=== PATIENT | female | born 1960 | race Caucasian/White ===

== ENCOUNTER 2017-05-03 08:03 | Observation (INO) | payer BC ==
[2017-05-03] MEDS ORDERED: diphenhydrAMINE 50 MG/ML SDV IVPUSH ONE (08:24)
[2017-05-03] MEDS ORDERED: Sodium Chloride 0.9% 1,000 ML IV STA (08:24)
[2017-05-03] MEDS ORDERED: Ketorolac 30 MG/ML SDV IVPUSH ONE (08:24)
[2017-05-03] MEDS ORDERED: methylPREDNISolone Sodium Succinate 125 MG/2 ML SDV IVPUSH ONE (08:24)
--- NOTE | 2017-05-03 08:44 | EDM.PDOC ---
ED HPI GENERAL MEDICAL PROBLEM - General Chief Complaint: Bite:Animal, Insect Stated Complaint: BITE Time Seen by Provider: 05/03/17 08:24 - History of Present Illness INITIAL COMMENTS - FREE TEXT/NARRATIVE: HISTORY AND PHYSICAL: History of present illness: Patient 56-year-old white female presents with a concern of pain swelling and erythema to her thigh patient suspects she was bit by some sort of insect and now has increasing redness pain swelling erythema. She denies fever chills nausea or vomiting. Review of systems: As per history of present illness and below otherwise all systems reviewed and negative. Past medical history: As per history of present illness and as reviewed below otherwise noncontributory. Surgical history: As per history of present illness and as reviewed below otherwise noncontributory. Social history: No reported history of drug or alcohol abuse. Family history: As per history of present illness and as reviewed below otherwise noncontributory. Physical exam: HEENT: Atraumatic, normocephalic, pupils reactive, negative for conjunctival pallor or scleral icterus, mucous membranes moist, throat clear, neck supple, nontender, trachea midline. Lungs: Clear to auscultation, breath sounds equal bilaterally, chest nontender. Heart: S1S2, regular, negative for clicks, rubs, or JVD. Abdomen: Soft, nondistended, nontender. Negative for masses or hepatosplenomegaly. Negative for costovertebral tenderness. Pelvis: Stable nontender. Genitourinary: Deferred. Rectal: Deferred. Extremities: Patient has a large area of her medial thigh extending anterior posteriorly and almost distally to her knee this is warm to the touch tender with minimal induration is no fluctuance Neuro: Awake, alert, oriented. Cranial nerves II through XII unremarkable. Cerebellum unremarkable. Motor and sensory unremarkable throughout. Exam nonfocal. Diagnostics: CBC CMP blood culture 2 lactic acid chest x-ray x-ray thought left femur Therapeutics: Normal saline 1 L bolus vancomycin 1 g IV Benadryl 50 mg IV Solu-Medrol 125 mg IV Impression: #1 cellulitis left thigh #2 rule out insect bite with acute allergic reaction Definitive disposition and diagnosis as appropriate pending reevaluation and review of above. Left thigh Pain Score (Numeric/FACES): 10 - Related Data Allergies Allergy/AdvReac Type Severity Reaction Status Date / Time No Known Allergies Allergy Verified 05/03/17 08:22 Home Meds: Home Meds Fluticasone Propionate [Flonase] 1 - 2 sprays INH DAILY PRN 07/30/15 [History] Omeprazole Magnesium [Prilosec Otc] 1 tab PO DAILY 07/30/15 [History] Albuterol [Ventolin HFA] 2 puff INH Q4H PRN 04/25/17 [History] Fluticasone/Vilanterol [Breo Ellipta 100-25 MCG Inhalation Kit] 1 inhalation INH DAILY PRN 04/25/17 [History] Levothyroxine Sodium [Levoxyl] 50 mcg PO DAILY 04/25/17 [History] Metoclopramide HCl 1 tab PO DAILY 04/25/17 [History] Pantoprazole Sodium 40 mg PO DAILY 04/25/17 [History] Sucralfate 1 gm PO QID 04/25/17 [History] cloNIDine HCl [Clonidine HCl ER] 0.1 mg PO BID 04/25/17 [History] metFORMIN HCl [Metformin HCl] 1 tab PO BID 04/25/17 [History] valACYclovir HCl [valACYclovir] 2 tab PO ASDIRECTED PRN 04/25/17 [History] Fluticasone Propionate [Flonase Allergy Relief] 1 spray NASBOTH DAILY 05/02/17 [ History] Past Medical History HEENT History: Reports: Allergic Rhinitis, Other (See Below) Other HEENT History: top and bottom denture Respiratory History: Reports: COPD Other Respiratory History: 43 yr history of smoking, currently down to 5 to 6 cigarettes per day, COPD dx 2016 Gastrointestinal History: Reports: Colon Polyp, GERD Other Gastrointestinal History: "terrible heartburn" Genitourinary History: Reports: None Other Musculoskeletal History: Low back pain, 'some arthritis to hands, hx: fracturing ribs, Neurological History: Reports: Other (See Below) Other Neuro History: "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" Endocrine/Metabolic History: Reports: Hyperthyroidism Other Endocrine/Metabolic History: pt takes levothyroxine - Past Surgical History Head Surgeries/Procedures: Reports: None HEENT Surgical History: Reports: Tonsillectomy GI Surgical History: Reports: Colonoscopy Female Surgical History: Reports: Cervical Cryotherapy, Hysterectomy Other Female Surgeries/Procedures: Partial hysterectomy, Conization of Cervix Other Oncologic Surgeries/Procedures: Cervical conization Social & Family History - Family History Family Medical History: Noncontributory - Tobacco Use Smoking Status *Q: Current Every Day Smoker Years of Tobacco use: 40 Packs/Tins Daily: 0.2 - Caffeine Use Caffeine Use: Reports: Coffee Caffeine Use Comment: 2-3 cups/day - Alcohol Use Days Per Week of Alcohol Use: 7 Number of Drinks Per Day: 3 Total Drinks Per Week: 21 - Recreational Drug Use Recreational Drug Use: Yes Drug Use in Last 12 Months: No Recreational Drug Type: Reports: Amphetamines (Speed) Recreational Drug Use Frequency: Daily ED ROS GENERAL - Review of Systems Review Of Systems: ROS reveals no pertinent complaints other than HPI. ED EXAM, ANIMAL BITE - Physical Exam Exam: See Below (See dictation) Course - Vital Signs Last Recorded V/S: Last Vital Signs Temp Pulse 89 05/03/17 09:00 Resp 16 05/03/17 09:00 BP 118/66 05/03/17 09:00 Pulse Ox 92 L 05/03/17 09:00 - Orders/Labs/Meds Orders: Active Orders 24 hr Category Date Time Status Patient Status [ADT] Stat ADT 05/03/17 08:27 Active Chest 1V Frontal [CR] Stat Exams 05/03/17 08:24 Ordered Femur Min 2V Lt [CR] Stat Exams 05/03/17 08:24 Ordered COMPREHENSIVE METABOLIC PN,CMP [CHEM] Stat Lab 05/03/17 08:23 Received CULTURE BLOOD [BC] Stat Lab 05/03/17 08:23 Received CULTURE BLOOD [BC] Stat Lab 05/03/17 08:49 Received Sodium Chloride 0.9% [Normal Saline] 1,000 ml Med 05/03/17 08:24 Active IV NOW Vancomycin [Vancocin] 1 gm Med 05/03/17 08:24 Active Sodium Chloride 0.9% [Normal Saline] 250 ml IV ONETIME Blood Culture x2 Reflex Set [OM.PC] Stat Oth 05/03/17 08:24 Ordered Medication Orders Sodium Chloride (Normal Saline) 1,000 mls @ 999 mls/hr IV NOW STA Stop: 05/03/17 09:24 Last Infusion: 05/03/17 08:58 Dose: 250 mls/hr Admin: 05/03/17 08:32 Dose: 999 mls/hr Vancomycin HCl 1 gm/ Sodium (Chloride) 250 mls @ 166 mls/hr IV ONETIME ONE Stop: 05/03/17 09:54 Last Admin: 05/03/17 08:58 Dose: 166 mls/hr Labs: Laboratory Tests 05/03/17 05/03/17 Range/Units 08:23 08:23 WBC 8.36 (4.0-11.0) K/uL RBC 4.53 (4.30-5.90) M/uL Hgb 14.3 (12.0-16.0) g/dL Hct 41.7 (36.0-46.0) % MCV 92.1 (80.0-98.0) fL MCH 31.6 (27.0-32.0) pg MCHC 34.3 (31.0-37.0) g/dL RDW Std Deviation 46.5 (28.0-62.0) fl RDW Coeff of Leonardo 14 (11.0-15.0) % Plt Count 259 (150-400) K/uL MPV 9.10 (7.40-12.00) fL Nucleated RBC % 0.0 /100WBC Nucleated RBCs # 0 K/uL Lactate 1.1 (0.20-2.00) mmol/L Meds: Medications Generic Name Dose Route Start Last Admin Trade Name Freq PRN Reason Stop Dose Admin Sodium Chloride 1,000 mls @ 999 mls/hr 05/03/17 08:24 05/03/17 08:58 Normal Saline IV 05/03/17 09:24 250 mls/hr NOW STA Infusion Vancomycin HCl 1 gm/ Sodium 250 mls @ 166 mls/hr 05/03/17 08:24 05/03/17 08: 58 Chloride IV 05/03/17 09:54 166 mls/hr ONETIME ONE Administration Discontinued Medications Generic Name Dose Route Start Last Admin Trade Name Freq PRN Reason Stop Dose Admin Diphenhydramine HCl 50 mg 05/03/17 08:24 05/03/17 08:48 Benadryl IVPUSH 05/03/17 08:25 50 mg ONETIME ONE Administration Hydromorphone HCl 1 mg 05/03/17 08:46 05/03/17 08:55 Dilaudid IVPUSH 05/03/17 08:47 1 mg ONETIME ONE Administration Ketorolac Tromethamine 30 mg 05/03/17 08:24 05/03/17 08:40 Toradol IVPUSH 05/03/17 08:25 30 mg ONETIME ONE Administration Methylprednisolone Sodium Succinate 125 mg 05/03/17 08:24 05/03/17 08:44 Solu-Medrol IVPUSH 05/03/17 08:25 125 mg ONETIME ONE Administration Ondansetron HCl 4 mg 05/03/17 08:46 05/03/17 08:52 Zofran IVPUSH 05/03/17 08:47 4 mg ONETIME ONE Administration Departure - Departure Time of Disposition: 08:43 Disposition: Refer to Observation Condition: Good Clinical Impression: Cellulitis - Discharge Information Referrals: PCP,None [Primary Care Provider] - Forms: ED Department Discharge - My Orders Last 24 Hours: My Active Orders 05/03/17 08:23 COMPREHENSIVE METABOLIC PN,CMP [CHEM] Stat CULTURE BLOOD [BC] Stat 05/03/17 08:24 Chest 1V Frontal [CR] Stat Femur Min 2V Lt [CR] Stat Sodium Chloride 0.9% [Normal Saline] 1,000 ml IV NOW Vancomycin [Vancocin] 1 gm Sodium Chloride 0.9% [Normal Saline] 250 ml IV ONETIME Blood Culture x2 Reflex Set [OM.PC] Stat 05/03/17 08:27 Patient Status [ADT] Stat 05/03/17 08:49 CULTURE BLOOD [BC] Stat - Assessment/Plan Last 24 Hours: My Active Orders 05/03/17 08:23 COMPREHENSIVE METABOLIC PN,CMP [CHEM] Stat CULTURE BLOOD [BC] Stat 05/03/17 08:24 Chest 1V Frontal [CR] Stat Femur Min 2V Lt [CR] Stat Sodium Chloride 0.9% [Normal Saline] 1,000 ml IV NOW Vancomycin [Vancocin] 1 gm Sodium Chloride 0.9% [Normal Saline] 250 ml IV ONETIME Blood Culture x2 Reflex Set [OM.PC] Stat 05/03/17 08:27 Patient Status [ADT] Stat 05/03/17 08:49 CULTURE BLOOD [BC] Stat
[2017-05-03] MEDS ORDERED: Ondansetron 4 MG/2 ML SDV IVPUSH ONE (08:46)
[2017-05-03] MEDS ORDERED: HYDROmorphone 1 MG/ML Syringe IVPUSH ONE (08:46)
[2017-05-03 09:42] LABS: CHLORIDE,CL 105 mmol/L (98-110); SODIUM,NA 137 mmol/L (136-146)
--- NOTE | 2017-05-03 09:56 | CR ---
EXAMINATION: Left femur HISTORY: Pain COMPARISON: None TECHNIQUE: AP and lateral views FINDINGS: There is no acute osseous abnormality, dislocation, or fracture. Bone mineralization is nor mal. There is mild generalized soft tissue edema no suprapatellar joint effusion. Mild osteophyte for mation within the femoral head. IMPRESSION: No acute osseous abnormality identified.
--- NOTE | 2017-05-03 09:56 | CR ---
EXAMINATION: Portable chest radiograph. HISTORY: Shortness of breath. Comparison: 08/16/2016, 03/08/2017. FINDINGS: The trachea is midline. The cardiomediastinal silhouette is within normal limits. Mild bibasilar atel ectasis/scarring and stable scarring within the left suprahilar region. No definite focal consolidati on. No pleural effusion or pneumothorax. Osseous structures appear unremarkable. IMPRESSION: No acute cardiopulmonary process.
[2017-05-03] MEDS ORDERED: Acetaminophen/HYDROcodone 325-5 MG Tab PO PRN (11:20)
[2017-05-03] MEDS ORDERED: Acetaminophen 325 MG Tab PO PRN (11:20)
[2017-05-03] MEDS ORDERED: Ondansetron 4 MG/2 ML SDV IVPUSH PRN (11:20)
--- NOTE | 2017-05-03 11:28 | PCM.HP ---
H&P History of Present Illness - General Date of Service: 05/03/17 Admit Problem/Dx: R lower extremity cellulitis Source of Information: Patient History Limitations: Reports: No Limitations - History of Present Illness Initial Comments - Free Text/Narative: This 56 year old female with pmh of COPD, HTN, pre-diabetes, hypothyroid, and alcohol abuse presented to the ED with 1 day history of pain, swelling and erythema to L upper thigh. She reports yesterday she was outside with her dog and felt a big sting to her inner thigh. She reports it felt like the sting she had to her L buttock 1 week ago from a wasp. She reports there is a wasp nest at the house she is living at and "they(wasps) are everywhere". Last night she soaked in a oatmeal bath with epsom salts but the pain, swelling and erythema worsened to the point she wanted to be evaluated. She is able to ambulate fine. She has some itchiness to the erythematous region. No drainage noted, no fever or chills at home. No chest pain or SOB. She no other complaints, no urinary symptoms and no abdominal pain. She reports drinking 3-4 drinks daily, she used to drink "heavily" and would withdrawl easily with seizures. She does smoke and denies recreational drug use, but does have a past of this. In the ED no leukocytosis noted. BC obtained. L Femur x ray obtained which revealed mild generalized soft tissue edema no suprapatetllar joint effusion. CXR negative. She was treated with Vancomycin and will be admitted for observation for L leg cellulitis. Left thigh Pain Score (Numeric/FACES): 2 - Related Data Allergies/Adverse Reactions: Allergies Allergy/AdvReac Type Severity Reaction Status Date / Time No Known Allergies Allergy Verified 05/03/17 08:22 Home Medications: Home Meds Omeprazole Magnesium [Prilosec Otc] 20 mg PO ACBREAKFAST 07/30/15 [History] Albuterol [Ventolin HFA] 2 puff INH Q4H PRN 04/25/17 [History] Fluticasone/Vilanterol [Breo Ellipta 100-25 MCG Inhalation Kit] 1 inhalation INH DAILY PRN 04/25/17 [History] Levothyroxine Sodium [Levoxyl] 50 mcg PO ACBREAKFAST 04/25/17 [History] Metoclopramide HCl 1 tab PO DAILY 04/25/17 [History] Pantoprazole Sodium 40 mg PO ACBREAKFAST 04/25/17 [History] Sucralfate 1 gm PO DAILY 04/25/17 [History] cloNIDine HCl [Clonidine HCl ER] 0.1 mg PO BID 04/25/17 [History] metFORMIN HCl [Metformin HCl] 500 mg PO BIDMEALS 04/25/17 [History] valACYclovir HCl [valACYclovir] 2,000 mg PO ONETIME 04/25/17 [History] Fluticasone Propionate [Flonase Allergy Relief] 1 spray NASBOTH DAILY 05/02/17 [ History] Past Medical History HEENT History: Reports: Allergic Rhinitis, Other (See Below) Other HEENT History: top and bottom denture Cardiovascular History: Reports: Hypertension. Denies: Blood Clots/VTE/DVT, CAD Respiratory History: Reports: COPD Other Respiratory History: 43 yr history of smoking, currently down to 5 to 6 cigarettes per day, COPD dx 2016 Gastrointestinal History: Reports: Colon Polyp, GERD Other Gastrointestinal History: "terrible heartburn" Genitourinary History: Reports: None. 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" Endocrine/Metabolic History: Reports: Diabetes, Type II (pre-diabetic), Hyperthyroidism, Hypothyroidism Dermatologic History: Reports: Cellulitis Other Dermatologic History: left inner thigh - Past Surgical History Head Surgeries/Procedures: Reports: None HEENT Surgical History: Reports: Tonsillectomy GI Surgical History: Reports: Colonoscopy Female Surgical History: Reports: Cervical Cryotherapy, Hysterectomy Other Female Surgeries/Procedures: Partial hysterectomy, Conization of Cervix Other Oncologic Surgeries/Procedures: Cervical conization Social & Family History - Family History Family Medical History: Noncontributory - Tobacco Use Smoking Status *Q: Current Every Day Smoker Years of Tobacco use: 43 Packs/Tins Daily: 0.5 Second Hand Smoke Exposure: No - Caffeine Use Caffeine Use: Reports: Coffee Caffeine Use Comment: 2-3 cups/day - Alcohol Use Days Per Week of Alcohol Use: 7 Number of Drinks Per Day: 3 Total Drinks Per Week: 21 Date of Last Drink: 05/02/17 Time of Last Drink: 21:00 Alcohol Use Frequency: Daily Desires Substance Cessation Medication: Refuses FDA Approved Med - Recreational Drug Use Recreational Drug Use: No Drug Use in Last 12 Months: No Recreational Drug Type: Reports: Amphetamines (Speed) Recreational Drug Use Frequency: Daily - Living Situation & Occupation Living situation: Reports: Single Occupation: Employed H&P Review of Systems - Review of Systems: Review Of Systems: See Below General: Denies: Fever, Chills, Malaise HEENT: Reports: No Symptoms. Denies: Eye Pain, Headaches, Sore Throat, Visual Changes Pulmonary: Reports: Shortness of Breath (intermittent with COPD). Denies: Wheezing, Cough, Sputum Cardiovascular: Reports: No Symptoms. Denies: Chest Pain, Palpitations Gastrointestinal: Reports: No Symptoms. Denies: Abdominal Pain, Black Stool, Bloody Stool, Nausea, Vomiting Genitourinary: Reports: No Symptoms. Denies: Dysuria, Frequency, Burning Skin: Reports: Erythema (L thigh). Denies: Wound Neurological: Reports: No Symptoms Hematologic/Lymphatic: Reports: No Symptoms Immunologic: Reports: No Symptoms Exam - Exam Exam: See Below - Vital Signs Vital Signs: Last Vital Signs Temp 97 F 05/03/17 09:40 Pulse 74 05/03/17 09:40 Resp 19 05/03/17 09:40 BP 146/69 H 05/03/17 09:40 Pulse Ox 97 05/03/17 09:40 Weight: 82.826 kg - Exam Quality Assessment: DVT Prophylaxis. No: Supplemental Oxygen General: Alert, Oriented, Cooperative HEENT: Conjunctiva Clear, Hearing Intact, Posterior Pharynx Clear, Pupils Equal , Pupils Reactive Neck: Supple, Trachea Midline, 2 Lungs: Clear to Auscultation, Normal Respiratory Effort Cardiovascular: Regular Rate, Regular Rhythm, Normal S1, Normal S2 Extremities: Normal Range of Motion, Increased Warmth (L inner thigh see skin), Redness (L inner thigh) Skin: Other (erythema, pain and induration noted to L medial thigh, extending both dorsally and ventrally, small punctate region noted to inner thigh near groin. No drainage noted. no fluctuance noted. Healed region to L buttock small area of healing skin noted. No induration or drainage) Skin Alteration Location (Drawings Not To Scale): 1 - small punctate region noted here, no drainage. Neuro Extensive - Mental Status: Alert, Oriented x3, Normal Mood/Affect, Normal Cognition Neuro Extensive - Motor, Sensory, Reflexes: Normal Gait Psychiatric: Alert, Normal Affect, Normal Mood - Patient Data Result Diagrams: 05/03/17 08:23 05/03/17 08:23 *Q Meaningful Use (ADM) - VTE *Q VTE Criteria *Q: - VTE Risk Assess *Q Each Risk Factor Represents 1 Point: Age 41 - 59 years, Abnormal Pulmonary Function (COPD) Total Score 1 Point Risk Factors: 2 Each Risk Factor Represents 2 Points: None Total Score 2 Point Risk Factors: 0 Each Risk Factor Represents 3 Points: None Total Score 3 Point Risk Factors: 0 Each Risk Factor Represents 5 Points: None Total Score 5 Point Risk Factors: 0 Venous Thromboembolism Risk Factor Score *Q: 2 - Stroke *Q Stroke Criteria *Q: - AMI *Q AMI Criteria *Q: - Problem List (1) Cellulitis SNOMED Code(s): 148090712 ICD Code: L03.90 - CELLULITIS, UNSPECIFIED Status: Acute Current Visit: Yes Qualifiers: Site of cellulitis: extremity Site of cellulitis of extremity: lower extremity Laterality: left Qualified Code(s): L03.116 - Cellulitis of left lower limb (2) HTN (hypertension) SNOMED Code(s): 37715571 ICD Code: I10 - ESSENTIAL (PRIMARY) HYPERTENSION Status: Chronic Current Visit: Yes Qualifiers: Hypertension type: essential hypertension Qualified Code(s): I10 - Essential (primary) hypertension (3) Pre-diabetes SNOMED Code(s): 443734213 ICD Code: R73.03 - PREDIABETES Status: Chronic Current Visit: Yes (4) Hypothyroid SNOMED Code(s): 41205495 ICD Code: E03.9 - HYPOTHYROIDISM, UNSPECIFIED Status: Chronic Current Visit: Yes (5) Alcohol abuse SNOMED Code(s): 96507024 ICD Code: F10.10 - ALCOHOL ABUSE, UNCOMPLICATED Status: Chronic Current Visit: Yes Problem List Initiated/Reviewed/Updated: Yes Orders Last 24hrs: Active Orders 24 hr Category Date Time Status Intake and Output [RC] QSHIFT Care 05/03/17 11:23 Active Oxygen Therapy [RC] PRN Care 05/03/17 11:20 Active Up ad Marielena [RC] ASDIRECTED Care 05/03/17 11:20 Active VTE/DVT Education [RC] PER UNIT ROUTINE Care 05/03/17 11:20 Active Vital Signs [RC] Q4H Care 05/03/17 11:20 Active [place] [employer] Diet [DIET] Diet 05/03/17 Lunch Active BASIC METABOLIC PANEL,BMP [CHEM] AM Lab 05/04/17 05:11 Ordered BASIC METABOLIC PANEL,BMP [CHEM] AM Lab 05/05/17 05:11 Ordered BASIC METABOLIC PANEL,BMP [CHEM] AM Lab 05/06/17 05:11 Ordered CBC WITH AUTO DIFF [HEME] AM Lab 05/04/17 05:11 Ordered CBC WITH AUTO DIFF [HEME] AM Lab 05/05/17 05:11 Ordered CBC WITH AUTO DIFF [HEME] AM Lab 05/06/17 05:11 Ordered Acetaminophen [Tylenol] Med 05/03/17 11:20 Ordered 650 mg PO Q4H PRN Acetaminophen/HYDROcodone [[place] 325-5 MG] Med 05/03/17 11:20 Ordered 1 - 2 tab PO Q4H PRN Ondansetron [Zofran] Med 05/03/17 11:20 Ordered 4 mg IVPUSH Q4H PRN Resuscitation Status Routine Resus Stat 05/03/17 11:20 Ordered Medication Orders Acetaminophen (Tylenol) 650 mg PO Q4H PRN PRN Reason: Pain (Mild 1-3)/fever Hydrocodone Bitart/Acetaminophen ([place] 325-5 Mg) 1 - 2 tab PO Q4H PRN PRN Reason: Pain (moderate 4-6) Ondansetron HCl (Zofran) 4 mg IVPUSH Q4H PRN PRN Reason: Nausea Assessment/Plan Comment:: This 56 year old female admitted with L extremity cellulitis 1. Cellulitis: L thigh, will contnue Vancomycin. BC pending. Will order PRN analgesia and Benadryl for itching. Monitor closely. 2. DM type 2: Pre-diabetic, with infection, will monitor BS TIDAC and treat with insulin as needed on SSI. 3. COPD: Continue home inhalers and Duonebs PRN 4. Hypothyroidism; Continue Levothyroxine 5. Alcohol abuse: CIWAA protocol, Thiamine and folic acid. VTE prophylaxis: Lovenox. Dispo: 1-2 days pending improvement
[2017-05-03] MEDS ORDERED: LORazepam 1 MG Tab PO PRN (12:16)
[2017-05-03] MEDS ORDERED: diphenhydrAMINE 25 MG Cap PO PRN (12:18)
[2017-05-03] MEDS: Folic Acid 50 MG/10 ML MDV SUBCUT SCH (12:54)
[2017-05-03] MEDS: Thiamine 100 MG Tab PO SCH ×2 (12:54→21:02)
[2017-05-03] MEDS ORDERED: Albuterol 8 GM Inhaler INH PRN (13:21)
[2017-05-03] MEDS ORDERED: Fluticasone/Vilanterol 1 INHALATION INH PRN (13:21)
[2017-05-03] MEDS ORDERED: Albuterol/Ipratropium 3.0-0.5 MG/3 ML Neb Soln NEB PRN (13:22)
[2017-05-03] MEDS ORDERED: Enoxaparin 40 MG/0.4 ML Syringe SUBCUT SCH (14:30)
[2017-05-03] MEDS: Insulin Aspart 100 Units/ML 3 ML Pen SUBCUT SCH ×2 (15:00→17:39)
[2017-05-03] MEDS: Sucralfate 1 GM Tab PO SCH ×3 (16:54→21:02)
[2017-05-03] MEDS ORDERED: CLONIDINE HCL 0.1 MG PO SCH (21:00)
[2017-05-03] MEDS: cloNIDine 0.1 MG Tab PO SCH (22:01)
[2017-05-04 05:31] LABS: CHLORIDE,CL 110 mmol/L (98-110); SODIUM,NA 140 mmol/L (136-146)
[2017-05-04] MEDS: Sucralfate 1 GM Tab PO SCH ×2 (06:32→11:59)
[2017-05-04] MEDS: Insulin Aspart 100 Units/ML 3 ML Pen SUBCUT SCH ×2 (06:33→12:00)
[2017-05-04] MEDS ORDERED: Pantoprazole 40 MG Tab.CR PO SCH (07:30)
[2017-05-04] MEDS ORDERED: Levothyroxine 50 MCG Tab PO SCH (07:30)
[2017-05-04] MEDS ORDERED: Fluticasone Propionate Nasal Spray 16 GM Bottle NASBOTH SCH (09:00)
[2017-05-04 09:20] VITALS: BP 121/68
[2017-05-04] MEDS: cloNIDine 0.1 MG Tab PO SCH (09:47)
[2017-05-04] MEDS: Folic Acid 50 MG/10 ML MDV SUBCUT SCH (09:48)
--- NOTE | 2017-05-04 10:10 | PCM.DCSUM1 ---
Discharge Summary - Hospital Course Brief History: This 56 year old female with pmh of COPD, HTN, pre-diabetes, hypothyroid, and alcohol abuse presented to the ED with 1 day history of pain, swelling and erythema to L upper thigh. She reports yesterday she was outside with her dog and felt a big sting to her inner thigh. She reports it felt like the sting she had to her L buttock 1 week ago from a wasp. She reports there is a wasp nest at the house she is living at and "they(wasps) are everywhere". She soaked in a oatmeal bath with epsom salts but the pain, swelling and erythema worsened to the point she wanted to be evaluated. She is able to ambulate fine. She has some itchiness to the erythematous region. No drainage noted, no fever or chills at home. No chest pain or SOB. She no other complaints, no urinary symptoms and no abdominal pain. She reports drinking 3-4 drinks daily, she used to drink "heavily" and would withdrawl easily with seizures. She does smoke and denies recreational drug use, but does have a past of this. In the ED no leukocytosis noted. BC obtained. L Femur x ray obtained which revealed mild generalized soft tissue edema no suprapatetllar joint effusion. CXR negative. She was treated with Vancomycin and will be admitted for observation for L leg cellulitis. - Discharge Data Discharge Date: 05/04/17 Discharge Disposition: Home, Self-Care 01 Condition: Good - Discharge Diagnosis/Problem(s) (1) Cellulitis SNOMED Code(s): 954531165 ICD Code: L03.90 - CELLULITIS, UNSPECIFIED Status: Acute Current Visit: Yes Qualifiers: Site of cellulitis: extremity Site of cellulitis of extremity: lower extremity Laterality: left Qualified Code(s): L03.116 - Cellulitis of left lower limb (2) HTN (hypertension) SNOMED Code(s): 17177898 ICD Code: I10 - ESSENTIAL (PRIMARY) HYPERTENSION Status: Chronic Current Visit: Yes Qualifiers: Hypertension type: essential hypertension Qualified Code(s): I10 - Essential (primary) hypertension (3) Pre-diabetes SNOMED Code(s): 210926360 ICD Code: R73.03 - PREDIABETES Status: Chronic Current Visit: Yes (4) Hypothyroid SNOMED Code(s): 75394983 ICD Code: E03.9 - HYPOTHYROIDISM, UNSPECIFIED Status: Chronic Current Visit: Yes Qualifiers: Hypothyroidism type: unspecified Qualified Code(s): E03.9 - Hypothyroidism , unspecified (5) Alcohol abuse SNOMED Code(s): 13155001 ICD Code: F10.10 - ALCOHOL ABUSE, UNCOMPLICATED Status: Chronic Current Visit: Yes - Patient Instructions Diet: Diabetic Diet Activity: As Tolerated Driving: May Drive Today Showering/Bathing: May Shower Notify Provider of: Fever, Increased Pain, Swelling and Redness, Drainage, Nausea and/or Vomiting - Discharge Plan Prescriptions/Med Rec: Sulfamethoxazole/Trimethoprim [Bactrim Ds Tablet] 1 each PO BID #20 tablet Home Medications: Home Meds Omeprazole Magnesium [Prilosec Otc] 20 mg PO ACBREAKFAST 07/30/15 [History] Albuterol [Ventolin HFA] 2 puff INH Q4H PRN 04/25/17 [History] Fluticasone/Vilanterol [Breo Ellipta 100-25 MCG Inhalation Kit] 1 inhalation INH DAILY PRN 04/25/17 [History] Levothyroxine Sodium [Levoxyl] 50 mcg PO ACBREAKFAST 04/25/17 [History] Metoclopramide HCl 1 tab PO DAILY 04/25/17 [History] Pantoprazole Sodium 40 mg PO ACBREAKFAST 04/25/17 [History] cloNIDine HCl [Clonidine HCl ER] 0.1 mg PO BID 04/25/17 [History] metFORMIN HCl [Metformin HCl] 500 mg PO BIDMEALS 04/25/17 [History] valACYclovir HCl [valACYclovir] 2,000 mg PO ONETIME 04/25/17 [History] Fluticasone Propionate [Flonase Allergy Relief] 1 spray NASBOTH DAILY 05/02/17 [ History] Sucralfate 1 gm PO QID #0 05/04/17 [Rx] Sulfamethoxazole/Trimethoprim [Bactrim Ds Tablet] 1 each PO BID #20 tablet 05/04 [Rx] Patient Handouts: Cellulitis, Adult, [id number], Sulfamethoxazole; Trimethoprim, SMX-TMP tablets Referrals: Brittany Cortes NP [Nurse Practitioner] - 05/08/17 1:00 pm Anca Sullivan PA [Physician Marine Oiler] - 05/08/17 9:00 am - Discharge Summary/Plan Comment DC Time >30 min.: No Discharge Summary/Plan Comment: Discharge Diagnoses: Cellulitis secondary to insect bite HTN DM Type 2- pre-diabetes Hypothyroidism Mercedes was admitted and treated with IV Vancomycin x 1 day. Today she is requesting discharge home. She is afebrile, erythema is improving. She declines wanting to stay another day. No lab changes, no leukocytosis. She will be sent home with Bactrim DS 1 tab by mouth twice daily for 10 days. She is to have close follow up next Sunday or Sunday with PCP. She was encouraged to return to ED or clinic if concerns should arise. - General Info Date of Service: 05/04/17 Admission Dx/Problem (Free Text: R lower extremity cellulitis Functional Status: Reports: Pain Controlled, Tolerating Diet, Ambulating, Urinating - Review of Systems General: Reports: No Symptoms. Denies: Fever, Weakness Pulmonary: Reports: No Symptoms. Denies: Shortness of Breath, Cough, Sputum Cardiovascular: Reports: No Symptoms. Denies: Chest Pain, Edema Gastrointestinal: Reports: No Symptoms. Denies: Flatus, Nausea, Vomiting Genitourinary: Reports: No Symptoms. Denies: Dysuria, Frequency, Burning, Pain Skin: Reports: Other (Erythema, improving, itching improving) Neurological: Reports: No Symptoms. Denies: Confusion - Patient Data Vitals - Most Recent: Last Vital Signs Temp 98.3 F 05/04/17 08:00 Pulse 76 05/04/17 08:00 Resp 16 05/04/17 08:00 BP 121/68 05/04/17 09:47 Pulse Ox 95 05/04/17 08:00 Weight - Most Recent: 82.826 kg I&O - Last 24 hours: Intake & Output 05/03/17 05/04/17 05/04/17 22:59 06:59 14:59 Intake Total 470 1040 Output Total 0 2100 Balance 470 -1060 Lab Results - Last 24 hrs: Laboratory Results - last 24 hr 05/03/17 05/03/17 05/04/17 Range/Units 14:42 16:58 04:40 WBC 9.24 (4.0-11.0) K/uL RBC 4.02 L (4.30-5.90) M/uL Hgb 12.7 (12.0-16.0) g/dL Hct 37.5 (36.0-46.0) % MCV 93.3 (80.0-98.0) fL MCH 31.6 (27.0-32.0) pg MCHC 33.9 (31.0-37.0) g/dL RDW Std Deviation 47.5 (28.0-62.0) fl RDW Coeff of Leonardo 14 (11.0-15.0) % Plt Count 247 (150-400) K/uL MPV 9.20 (7.40-12.00) fL Neut % (Auto) 84.6 H (48.0-80.0) % Lymph % (Auto) 9.5 L (16.0-40.0) % [place] % (Auto) 5.8 (0.0-15.0) % Eos % (Auto) 0.0 (0.0-7.0) % Baso % (Auto) 0.1 (0.0-1.5) % Neut # (Auto) 7.8 H (1.4-5.7) K/uL Lymph # (Auto) 0.9 (0.6-2.4) K/uL [place] # (Auto) 0.5 (0.0-0.8) K/uL Eos # (Auto) 0.0 (0.0-0.7) K/uL Baso # (Auto) 0.0 (0.0-0.1) K/uL Nucleated RBC % 0.0 /100WBC Nucleated RBCs # 0 K/uL Sodium (136-146) mmol/L Potassium (3.5-5.1) mmol/L Chloride (98-110) mmol/L Carbon Dioxide (21-31) mmol/L BUN (6.0-23.0) mg/dL Creatinine (0.6-1.5) mg/dL Est Cr Clr Drug Dosing mL/min Estimated GFR (MDRD) ml/min Glucose (60-110) mg/dL POC Glucose 193 H 165 H (60-110) mg/dL Calcium (8.8-10.8) mg/dL 05/04/17 05/04/17 Range/Units 04:40 06:32 WBC (4.0-11.0) K/uL RBC (4.30-5.90) M/uL Hgb (12.0-16.0) g/dL Hct (36.0-46.0) % MCV (80.0-98.0) fL MCH (27.0-32.0) pg MCHC (31.0-37.0) g/dL RDW Std Deviation (28.0-62.0) fl RDW Coeff of Leonardo (11.0-15.0) % Plt Count (150-400) K/uL MPV (7.40-12.00) fL Neut % (Auto) (48.0-80.0) % Lymph % (Auto) (16.0-40.0) % [place] % (Auto) (0.0-15.0) % Eos % (Auto) (0.0-7.0) % Baso % (Auto) (0.0-1.5) % Neut # (Auto) (1.4-5.7) K/uL Lymph # (Auto) (0.6-2.4) K/uL [place] # (Auto) (0.0-0.8) K/uL Eos # (Auto) (0.0-0.7) K/uL Baso # (Auto) (0.0-0.1) K/uL Nucleated RBC % /100WBC Nucleated RBCs # K/uL Sodium 140 (136-146) mmol/L Potassium 4.1 (3.5-5.1) mmol/L Chloride 110 (98-110) mmol/L Carbon Dioxide 21 (21-31) mmol/L BUN 11 (6.0-23.0) mg/dL Creatinine 0.7 (0.6-1.5) mg/dL Est Cr Clr Drug Dosing 98.20 mL/min Estimated GFR (MDRD) > 60.0 ml/min Glucose 132 H (60-110) mg/dL POC Glucose 143 H (60-110) mg/dL Calcium 9.0 (8.8-10.8) mg/dL ANEL Results - Last 24 hrs: Microbiology 05/03/17 08:49 Aerobic Blood Culture - Preliminary Blood - Venous - Lab Draw NO GROWTH AFTER 1 DAY Anaerobic Blood Culture - Preliminary NO GROWTH AFTER 1 DAY Med Orders - Current: Current Medications Acetaminophen (Tylenol) 650 mg PO Q4H PRN PRN Reason: Pain (Mild 1-3)/fever Hydrocodone Bitart/Acetaminophen (Randle 325-5 Mg) 1 - 2 tab PO Q4H PRN PRN Reason: Pain (moderate 4-6) Albuterol (Ventolin Hfa) 0 gm INH Q4H PRN PRN Reason: Shortness of Breath Albuterol/Ipratropium (Duoneb 3.0-0.5 Mg/3 Ml) 3 ml NEB Q4HRRT PRN PRN Reason: sob/wheezing Clonidine HCl (Catapres) 0.1 mg PO Q12HR [facility] Last Admin: 05/04/17 09:47 Dose: 0.1 mg Diphenhydramine HCl (Benadryl) 25 mg PO Q6H PRN PRN Reason: Itching Last Admin: 05/03/17 21:02 Dose: 25 mg Enoxaparin Sodium (Lovenox) 40 mg SUBCUT Q24H [facility] Last Admin: 05/03/17 15:06 Dose: 40 mg Fluticasone Propionate (Flonase) 0 gm NASBOTH DAILY [facility] Last Admin: 05/04/17 09:47 Dose: 1 spray Folic Acid (Folic Acid) 1 mg SUBCUT DAILY [facility] Last Admin: 05/04/17 09:48 Dose: 1 mg Vancomycin HCl 1,250 mg/ (Sodium Chloride) 500 mls @ 333.333 mls/hr IV Q12H [facility] Last Infusion: 05/04/17 01:37 Dose: Infused Insulin Aspart (Novolog) 0 unit SUBCUT TIDAC [facility] PRN Reason: Protocol Last Admin: 05/04/17 06:33 Dose: Not Given Levothyroxine Sodium (Synthroid) 50 mcg PO ACBREAKFAST [facility] Last Admin: 05/04/17 06:32 Dose: 50 mcg Lorazepam (Ativan) 0 mg PO Q4H PRN; Protocol PRN Reason: CIWAA Ondansetron HCl (Zofran) 4 mg IVPUSH Q4H PRN PRN Reason: Nausea Pantoprazole Sodium (Protonix) 40 mg PO ACBREAKFAST [facility] Last Admin: 05/04/17 06:32 Dose: 40 mg Fluticasone/Vilanterol 1 Inhalation 1 each INH DAILY PRN PRN Reason: Shortness of Breath Sucralfate (Carafate) 1 gm PO QIDACANDBED [facility] Last Admin: 05/04/17 06:32 Dose: 1 gm Thiamine HCl (Vitamin B-1) 100 mg PO BEDTIME [facility] Last Admin: 05/03/17 21:02 Dose: 100 mg Vancomycin HCl (Pharmacy To Dose - Vancomycin) 1 dose .XX ASDIRECTED [facility] Discontinued Medications Diphenhydramine HCl (Benadryl) 50 mg IVPUSH ONETIME ONE Stop: 05/03/17 08:25 Last Admin: 05/03/17 08:48 Dose: 50 mg Hydromorphone HCl (Dilaudid) 1 mg IVPUSH ONETIME ONE Stop: 05/03/17 08:47 Last Admin: 05/03/17 08:55 Dose: 1 mg Sodium Chloride (Normal Saline) 1,000 mls @ 999 mls/hr IV NOW STA Stop: 05/03/17 09:24 Last Infusion: 05/03/17 08:58 Dose: 250 mls/hr Vancomycin HCl 1 gm/ Sodium (Chloride) 250 mls @ 166 mls/hr IV ONETIME ONE Stop: 05/03/17 09:54 Last Admin: 05/03/17 08:58 Dose: 166 mls/hr Ketorolac Tromethamine (Toradol) 30 mg IVPUSH ONETIME ONE Stop: 05/03/17 08:25 Last Admin: 05/03/17 08:40 Dose: 30 mg Methylprednisolone Sodium Succinate (Solu-Medrol) 125 mg IVPUSH ONETIME ONE Stop: 05/03/17 08:25 Last Admin: 05/03/17 08:44 Dose: 125 mg Ondansetron HCl (Zofran) 4 mg IVPUSH ONETIME ONE Stop: 05/03/17 08:47 Last Admin: 05/03/17 08:52 Dose: 4 mg Clonidine Hcl [ Clonidine Hcl Er] 0. 1 Mg 1 each PO BID [facility] Last Admin: 05/03/17 21:20 Dose: Not Given - Exam General: Reports: Alert, Oriented, Cooperative, No Acute Distress HEENT: Reports: Pupils Equal, Pupils Reactive, EOMI, Mucous Membr. Moist/[place] Lungs: Reports: Clear to Auscultation, Normal Respiratory Effort Cardiovascular: Reports: Regular Rate, Regular Rhythm GI/Abdominal Exam: Normal Bowel Sounds, Soft, Non-Tender, No Organomegaly, No Distention, No Abnormal Bruit, No Mass, Pelvis Stable Wound/Incisions: Reports: Erythema Improving (improved to L medial thigh. continues to be warm, no tenderness. Some induration still near groin, no drainage. ) Neurological: Reports: No New Focal Deficit Psy/Mental Status: Reports: Alert, Normal Affect, Normal Mood *Q Meaningful Use (DIS) - VTE *Q VTE Criteria *Q: - Stroke *Q Stroke Criteria *Q: - AMI *Q AMI Criteria *Q:
[2017-05-04] MEDS ORDERED: Sulfamethoxazole/Trimethoprim 800-160 MG Tab PO SCH (10:15)
== END 2017-05-04 11:53 | disposition home or self-care (01) ==
LOC: MW.ED 08:03 → MW.MS 08:27
PROVIDERS: ADMIT Internal Medicine; ATTEND Internal Medicine
DX: L03.116 Cellulitis of left lower limb (principal); J44.9 Chronic obstructive pulmonary disease, unspecified; I10 Essential (primary) hypertension; E03.9 Hypothyroidism, unspecified; F10.10 Alcohol abuse, uncomplicated; F17.210 Nicotine dependence, cigarettes, uncomplicated; K21.9 Gastro-esophageal reflux disease without esophagitis; E11.9 Type 2 diabetes mellitus without complications; Z87.19 Personal history of other diseases of the digestive system; Z79.51 Long term (current) use of inhaled steroids; Z79.84 Long term (current) use of oral hypoglycemic drugs; Z79.899 Other long term (current) drug therapy; Z90.710 Acquired absence of both cervix and uterus; Z90.89 Acquired absence of other organs; Z98.890 Other specified postprocedural states
CPT/HCPCS: 36415; 71010; 73552; 80048; 80053; 82962; 83605; 85025; 85027; 87040; 96361; 96365; 96366; 96372; 96375; 99284; A9270; G0378; J1170; J1200; J1650; J1815; J1885; J2405; J2930; J3370; J7040; J7050; 99283

== ENCOUNTER 2017-05-09 07:09 | Day surgery (SDC) | payer BC ==
[~2017-05-09 07:09] MED LIST: Lactated Ringers 1,000 ML IV SCH
[2017-05-09] MEDS ORDERED: Ondansetron 4 MG/2 ML SDV ONE (07:41)
[2017-05-09] MEDS ORDERED: Succinylcholine/Normal Saline 200 MG/10 ML Syringe ONE (07:41)
[2017-05-09] MEDS ORDERED: Dexamethasone 4 MG/ML 5 ML MDV ONE (07:41)
[2017-05-09] MEDS ORDERED: Rocuronium 10 MG/ML 10 ML Syringe ONE (07:41)
[2017-05-09] MEDS ORDERED: Lidocaine 2% 5 ML SDV ONE (07:41)
[2017-05-09] MEDS ORDERED: Propofol 200 MG/20 ML SDV ONE (07:42)
[2017-05-09] MEDS ORDERED: fentaNYL 100 MCG/2 ML SDV ONE ×2 (07:42→08:48)
[2017-05-09] MEDS ORDERED: Midazolam 1 MG/ML 2 ML SDV ONE (07:42)
[2017-05-09] MEDS ORDERED: EPINEPHrine 1 MG/ML SDV ONE (08:24)
--- NOTE | 2017-05-09 08:38 | PCM.PREANE ---
Preanesthetic Assessment - Anesthesia/Transfusion/Family Hx Anesthesia History: Prior Anesthesia Without Reaction Family History of Anesthesia Reaction: No Transfusion History: No Prior Transfusion(s) - Review of Systems General: Other (hoarse voice) Pulmonary: Other (smoker trying to quit) Cardiovascular: Other (hypertension - treated) Gastrointestinal: Other (severe GERD regularly) Neurological: Change in Speech, Other (finger joint problem) Other: Reports: Thyroid Problems (hyper and hypo thyroid - on levothyroxine), Sinus Problem - Physical Assessment NPO Status Date: 05/08/17 NPO Status Time: 23:00 O2 Sat by Pulse Oximetry: 95 Respiratory Rate: 16 Vital Signs: Last Vital Signs Temp 97.7 F 05/09/17 07:56 Pulse 72 05/09/17 07:56 Resp 16 05/09/17 07:56 BP 129/72 05/09/17 07:56 Pulse Ox 95 05/09/17 07:56 Height: 5 ft 10 in Weight: 182 lb 9.6 oz ASA Class: 3 Mental Status: Alert & Oriented x3 Airway Class: Mallampati = 1 Dentition: Reports: Dentures Thyro-Mental Finger Breadths: 3 Mouth Opening Finger Breadths: 3 ROM/Head Extension: Full Lungs: Clear to Auscultation, Normal Respiratory Effort Cardiovascular: Regular Rate, Regular Rhythm, No Murmurs - Lab Values: Laboratory Last Values POC Glucose 100 mg/dL (60-110) 05/09/17 07:40 - Allergies Allergies/Adverse Reactions: Allergies Allergy/AdvReac Type Severity Reaction Status Date / Time No Known Allergies Allergy Verified 05/03/17 08:22 - Blood Blood Available: No Product(s) Available: None - Acknowledgements Anesthesia Type Planned: General Anesthesia (#5 OET ) Pt an Appropriate Candidate for the Planned Anesthesia: Yes Alternatives and Risks of Anesthesia Discussed w Pt/Guardian: Yes Pt/Guardian Understands and Agrees with Anesthesia Plan: Yes Additional Comments: friend present at bedside. PreAnesthesia Questionnaire HEENT History: Reports: Allergic Rhinitis, Other (See Below) Other HEENT History: top and bottom denture Cardiovascular History: Reports: Hypertension Respiratory History: Reports: COPD Other Respiratory History: 43 yr history of smoking, currently down to 5 to 6 cigarettes per day, COPD dx 2016 Gastrointestinal History: Reports: Colon Polyp, GERD Other Gastrointestinal History: "terrible heartburn" Genitourinary History: Reports: None RECTIFICATION PRINTER History: Reports: Other (See Below) Other Musculoskeletal History: Low back pain, 'some arthritis to hands, hx: fracturing ribs, Neurological History: Reports: Other (See Below) Other Neuro History: "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" Endocrine/Metabolic History: Reports: Diabetes, Type II, Hyperthyroidism, Hypothyroidism Other Endocrine/Metabolic History: pt takes levothyroxine Dermatologic History: Reports: Cellulitis Other Dermatologic History: left inner thigh - Past Surgical History Head Surgeries/Procedures: Reports: None HEENT Surgical History: Reports: Tonsillectomy GI Surgical History: Reports: Colonoscopy Female Surgical History: Reports: Cervical Cryotherapy, Hysterectomy Other Female Surgeries/Procedures: Partial hysterectomy, Conization of Cervix Other Oncologic Surgeries/Procedures: Cervical conization - SUBSTANCE USE Smoking Status *Q: Current Every Day Smoker Tobacco Use Within Last Twelve Months: Cigarettes Second Hand Smoke Exposure: No Days Per Week of Alcohol Use: 7 Number of Drinks Per Day: 3 Total Drinks Per Week: 21 Recreational Drug Use History: No Recreational Drug Type: Reports: Amphetamines (Speed) Other Recreational Drug Type: History of Cocaine use in younger years denies any use of injectible drugs - HOME MEDS Home Medications: Home Meds Omeprazole Magnesium [Prilosec Otc] 20 mg PO ACBREAKFAST 07/30/15 [History] Albuterol [Ventolin HFA] 2 puff INH Q4H PRN 04/25/17 [History] Fluticasone/Vilanterol [Breo Ellipta 100-25 MCG Inhalation Kit] 1 inhalation INH DAILY PRN 04/25/17 [History] Levothyroxine Sodium [Levoxyl] 50 mcg PO ACBREAKFAST 04/25/17 [History] Metoclopramide HCl 1 tab PO DAILY 04/25/17 [History] Pantoprazole Sodium 40 mg PO ACBREAKFAST 04/25/17 [History] cloNIDine HCl [Clonidine HCl ER] 0.1 mg PO BID 04/25/17 [History] metFORMIN HCl [Metformin HCl] 500 mg PO BIDMEALS 04/25/17 [History] valACYclovir HCl [valACYclovir] 2,000 mg PO ONETIME 04/25/17 [History] Fluticasone Propionate [Flonase Allergy Relief] 1 spray NASBOTH DAILY 05/02/17 [ History] Sucralfate 1 gm PO QID #0 05/04/17 [Rx] Sulfamethoxazole/Trimethoprim [Bactrim Ds Tablet] 1 each PO BID #20 tablet 05/04 [Rx] - CURRENT (IN HOUSE) MEDS Current Meds: Current Medications Lactated Ringer's (Ringers, Lactated) 1,000 mls @ 125 mls/hr IV ASDIRECTED [facility] Last Admin: 05/09/17 07:26 Dose: 125 mls/hr Discontinued Medications Dexamethasone (Dexamethasone) Confirm Administered Dose 20 mg .ROUTE .STK-MED ONE Stop: 05/09/17 07:42 Epinephrine HCl (Adrenalin 1:1000) Confirm Administered Dose 3 mg .ROUTE .STK- MED ONE Stop: 05/09/17 08:25 Fentanyl (Sublimaze) Confirm Administered Dose 100 mcg .ROUTE .STK-MED ONE Stop: 05/09/17 07:43 Lidocaine (Xylocaine-Mpf 2%) Confirm Administered Dose 5 ml .ROUTE .STK-MED ONE Stop: 05/09/17 07:42 Midazolam HCl (Versed 1 Mg/Ml) Confirm Administered Dose 2 mg .ROUTE .STK-MED ONE Stop: 05/09/17 07:43 Ondansetron HCl (Zofran) Confirm Administered Dose 4 mg .ROUTE .STK-MED ONE Stop: 05/09/17 07:42 Propofol (Diprivan 20 Ml) Confirm Administered Dose 200 mg .ROUTE .STK-MED ONE Stop: 05/09/17 07:43 Rocuronium Byers (Zemuron) Confirm Administered Dose 100 mg .ROUTE .STK-MED ONE Stop: 05/09/17 07:42 Succinylcholine Chloride (Succinylcholine In Ns Pf) Confirm Administered Dose 200 mg .ROUTE .STK-MED ONE Stop: 05/09/17 07:42
--- NOTE | 2017-05-09 08:39 | PCM.OPNOTE ---
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 On clinical exam/fiberoptic laryngoscopy she was found to have vocal cord leukoplakia although the visualization of the left true vocal cord was difficult owing to supraglottic spasm. Considering that she was a lifelong smoker in the office findings she was consented for the procedure today. Findings: Dry secretions and keratotic debris bilateral vocal cords. After these were suctioned and cleared the left vocal cord appeared normal however the right True vocal cord had leukoplakia in the mid aspectthis was biopsied. Operation details: A timeout was performed and patient was brought back to the operating room and laid supine on the operating table. Anesthesia was administered with a number 5 MLB endotracheal tube. She was appropriately positioned on the table- shoulder roll and head ring. Upper and lower gum barbour were used. A Kleinsasser laryngoscope was used to obtain a good view of the endolarynx. This was suspended with a suspension system. Bilateral true vocal cords / endolarynx was visualized with a rigid laryngeal endoscope - findings as above. Photo documentation was obtained. The microscope was then brought into place. An incision was made with the micro -scissors just on the lateral aspect of the visualized leukoplakia. Further dissection was carried out in the subepithelial plane. This was then grasped with cupped forceps resected and sent off for histopathology. Hemostasis was ensured with cottonoids soaked in 1: 1000 epinephrine. Larynx was sprayed with 4 % lidocaine - 0.5 mls was used The laryngoscope was removed. Gums and lips were intact. Specimens:Right true vocal cord biopsy IV fluids:1400 ml Follow-up: In 1 week
[2017-05-09] MEDS ORDERED: Albuterol 6.7 GM Inhaler INH ONE (08:59)
[2017-05-09] MEDS ORDERED: HYDROmorphone 2 MG/ML Syringe ONE (09:01)
[2017-05-09] MEDS ORDERED: Lidocaine 4% Top Soln 50 ML Bottle ONE (09:38)
[2017-05-09] MEDS ORDERED: Lidocaine 4% Top Soln 50 ML Bottle TOP ONE (09:40)
[2017-05-09] MEDS ORDERED: Acetaminophen 325 MG Tab PO PRN (10:13)
--- NOTE | 2017-05-09 10:52 | PCM.POSTAN ---
POST ANESTHESIA ASSESSMENT - MENTAL STATUS Mental Status: Oriented, Somnolent - RESPIRATORY Respiratory Status: Respiratory Rate WNL, Airway Patent, O2 Saturation Stable - CARDIOVASCULAR CV Status: Pulse Rate WNL, Blood Pressure Stable - GASTROINTESTINAL GI Status: No Symptoms - POST OP HYDRATION Hydration Status: Adequate & Stable
--- NOTE | 2017-05-09 12:00 | PCM48HPAN ---
Post Anesthesia Note - EVALUATION WITHIN 48HRS OF ANESTHETIC Vital Signs in Normal Range: Yes Patient Participated in Evaluation: Yes Respiratory Function Stable: Yes Airway Patent: Yes Cardiovascular Function Stable: Yes Hydration Status Stable: Yes Pain Control Satisfactory: Yes Nausea and Vomiting Control Satisfactory: Yes Mental Status Recovered: Yes
[2017-05-09 12:04] VITALS: BP 126/71
== END 2017-05-09 11:55 | disposition home or self-care (01) ==
LOC: MW.SDS 07:09
PROVIDERS: ATTEND Otolaryngology
DX: J38.3 Other diseases of vocal cords (principal); J44.9 Chronic obstructive pulmonary disease, unspecified; K21.9 Gastro-esophageal reflux disease without esophagitis; E03.9 Hypothyroidism, unspecified; B00.1 Herpesviral vesicular dermatitis; F17.210 Nicotine dependence, cigarettes, uncomplicated; I10 Essential (primary) hypertension; E11.9 Type 2 diabetes mellitus without complications; M19.049 Primary osteoarthritis, unspecified hand; Z85.41 Personal history of malignant neoplasm of cervix uteri; Z86.010 Personal history of colon polyps; Z79.51 Long term (current) use of inhaled steroids; Z79.84 Long term (current) use of oral hypoglycemic drugs; Z79.899 Other long term (current) drug therapy; Z90.710 Acquired absence of both cervix and uterus; Z90.89 Acquired absence of other organs; Z98.890 Other specified postprocedural states
CPT/HCPCS: 31536; 82962; 88305; A9270; J0171; J1100; J1170; J2250; J2405; J3010; J7120; 00320; J2704

== ENCOUNTER 2018-11-01 18:45 | Emergency (ER) | payer SELFPAY ==
[2018-11-01] MEDS ORDERED: Albuterol/Ipratropium 3.0-0.5 MG/3 ML Neb Soln NEB ONE (19:17)
[2018-11-01] MEDS ORDERED: methylPREDNISolone Sodium Succinate 125 MG/2 ML SDV IM ONE (19:40)
--- NOTE | 2018-11-01 19:57 | EDM.PDOC ---
ED HPI GENERAL MEDICAL PROBLEM - General Chief Complaint: Respiratory Problem Stated Complaint: COUGH Time Seen by Provider: 11/01/18 19:54 Source of Information: Reports: Patient - History of Present Illness INITIAL COMMENTS - FREE TEXT/NARRATIVE: HISTORY AND PHYSICAL: History of present illness: [Patient presents with cough for 2 weeks productive at times she does have significant smoking history with slight end expiratory wheeze associated on exam No fever nausea vomiting chills sweats] Review of systems: As per history of present illness and below otherwise all systems reviewed and negative. Past medical history: As per history of present illness and as reviewed below otherwise noncontributory. Surgical history: As per history of present illness and as reviewed below otherwise noncontributory. Social history: No reported history of drug or alcohol abuse. Family history: As per history of present illness and as reviewed below otherwise noncontributory. Physical exam: HEENT: Atraumatic, normocephalic, pupils reactive, negative for conjunctival pallor or scleral icterus, mucous membranes moist, throat clear, neck supple, nontender, trachea midline. Lungs: Clear to auscultation, breath sounds equal bilaterally, chest nontender. Post DuoNeb and Solu-Medrol and expiratory wheeze prior Heart: S1S2, regular, negative for clicks, rubs, or JVD. Abdomen: Soft, nondistended, nontender. Negative for masses or hepatosplenomegaly. Negative for costovertebral tenderness. Pelvis: Stable nontender. Genitourinary: Deferred. Rectal: Deferred. Extremities: Atraumatic, negative for cords or calf pain. Neurovascular unremarkable. Neuro: Awake, alert, oriented. Cranial nerves II through XII unremarkable. Cerebellum unremarkable. Motor and sensory unremarkable throughout. Exam nonfocal. Diagnostics: [Chest 2 views Strep influenza ] Therapeutics: [: 500 mg by mouth daily #10 no refill HFA Medrol Dosepak ] Impression: [ infiltrate on chest x-ray Bronchitis ] Definitive disposition and diagnosis as appropriate pending reevaluation and review of above. Left Abdomen Pain Score (Numeric/FACES): 7 - Related Data Allergies Allergy/AdvReac Type Severity Reaction Status Date / Time No Known Allergies Allergy Verified 11/01/18 19:12 Home Meds: Home Meds . 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) Other Musculoskeletal History: Low back pain, 'some arthritis to hands, hx: fracturing ribs, Neurological History: Reports: Other (See Below) Other Neuro History: "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" Endocrine/Metabolic History: Reports: Hyperthyroidism, Hypothyroidism Other Endocrine/Metabolic History: pt takes levothyroxine Dermatologic History: Reports: Cellulitis Other Dermatologic History: left inner thigh - Past Surgical History Head Surgeries/Procedures: Reports: None HEENT Surgical History: Reports: Tonsillectomy GI Surgical History: Reports: Colonoscopy Female Surgical History: Reports: Cervical Cryotherapy, Hysterectomy Other Female Surgeries/Procedures: Partial hysterectomy, Conization of Cervix Other Oncologic Surgeries/Procedures: Cervical conization Social & Family History - Family History Family Medical History: Noncontributory - Tobacco Use Smoking Status *Q: Current Every Day Smoker Years of Tobacco use: 44 Packs/Tins Daily: 0.5 - Caffeine Use Caffeine Use: Reports: Coffee Caffeine Use Comment: 2-3 cups/day - Recreational Drug Use Recreational Drug Use: No - Living Situation & Occupation Living situation: Reports: Single Occupation: Employed ED ROS GENERAL - Review of Systems Review Of Systems: See Below ED EXAM, GENERAL - Physical Exam Exam: See Below Course - Vital Signs Last Recorded V/S: Last Vital Signs Temp 97.5 F 11/01/18 19:07 Pulse 102 H 11/01/18 19:07 Resp 20 11/01/18 19:07 BP 106/77 11/01/18 19:07 Pulse Ox 95 11/01/18 19:07 - Orders/Labs/Meds Orders: Active Orders 24 hr Category Date Time Status RT Aerosol Therapy [RC] ASDIRECTED Care 11/01/18 19:17 Active Chest 2V [CR] Stat Exams 11/01/18 19:06 Taken CULTURE STREP A CONFIRMATION [RM] Stat Lab 11/01/18 19:18 Results STREP SCRN A RAPID W CULT CONF [RM] Stat Lab 11/01/18 19:18 Results Meds: Medications Discontinued Medications Generic Name Dose Route Start Last Admin Trade Name Katherine PRN Reason Stop Dose Admin Albuterol/Ipratropium 3 ml 11/01/18 19:17 11/01/18 19:30 Duoneb 3.0-0.5 Mg/3 Ml NEB 11/01/18 19:18 3 ml ONETIME ONE Administration Methylprednisolone Sodium Succinate 125 mg 11/01/18 19:40 Solu-Medrol IM 11/01/18 19:41 ONETIME ONE Departure - Departure Time of Disposition: 19:56 Disposition: Home, Self-Care 01 Condition: Good Clinical Impression: Pulmonary infiltrate on chest x-ray, Bronchitis - Discharge Information Referrals: PCP,None [Primary Care Provider] - Additional Instructions: Medication as prescribed Return if symptoms persist or worsen Follow-up with primary care in 2 weeks and repeat chest x-ray [facility] [address] [place] [id number] The following information is given to patients seen in the emergency department who are being discharged to home. This information is to outline your options for follow-up care. We provide all patients seen in our emergency department with a follow-up referral. The need for follow-up, as well as the timing and circumstances, are variable depending upon the specifics of your emergency department visit. If you don't have a primary care physician on staff, we will provide you with a referral. We always advise you to contact your personal physician following an emergency department visit to inform them of the circumstance of the visit and for follow-up with them and/or the need for any referrals to a consulting specialist. The emergency department will also refer you to a specialist when appropriate. This referral assures that you have the opportunity for follow-up care with a specialist. All of these measure are taken in an effort to provide you with optimal care, which includes your follow-up. Under all circumstances we always encourage you to contact your private physician who remains a resource for coordinating your care. When calling for follow-up care, please make the office aware that this follow-up is from your recent emergency room visit. If for any reason you are refused follow-up, please contact the [facility] emergency department at and asked to speak to the emergency department charge nurse. - My Orders Last 24 Hours: My Active Orders 11/01/18 19:06 Chest 2V [CR] Stat 11/01/18 19:17 RT Aerosol Therapy [RC] ASDIRECTED 11/01/18 19:18 CULTURE STREP A CONFIRMATION [RM] Stat STREP SCRN A RAPID W CULT CONF [RM] Stat - Assessment/Plan Last 24 Hours: My Active Orders 11/01/18 19:06 Chest 2V [CR] Stat 11/01/18 19:17 RT Aerosol Therapy [RC] ASDIRECTED 11/01/18 19:18 CULTURE STREP A CONFIRMATION [RM] Stat STREP SCRN A RAPID W CULT CONF [RM] Stat
--- NOTE | 2018-11-01 19:59 | CR ---
Indication: Cough for 2 weeks. Technique: PA and lateral views suggest routine. Comparison: May 03, 2017. Findings: The heart is normal in size. The lungs are clear. No infiltrate, pleural effusion, or pneumothorax is identified. Impression: No acute cardiopulmonary process. Dictated by Steffanie Pollack MD @ Nov 01 2018 7:56PM Signed by Dr. Steffanie Pollack @ Nov 01 2018 7:57PM
[2018-11-01 20:07] VITALS: BP 111/68
== END 2018-11-01 20:07 | disposition home or self-care (01) ==
LOC: MW.ED 18:45
DX: J40 Bronchitis, not specified as acute or chronic (principal); I10 Essential (primary) hypertension; J44.0 Chronic obstructive pulmonary disease with (acute) lower respiratory infection; K21.9 Gastro-esophageal reflux disease without esophagitis
CPT/HCPCS: 71046; 87081; 87804; 87880; 94640; 96372; 99284; J2930; 99282; J7620-GY

== ENCOUNTER 2019-02-07 15:16 | Emergency (ER) | payer SELFPAY ==
--- NOTE | 2019-02-07 15:30 | EDM.PDOC ---
ED HPI GENERAL MEDICAL PROBLEM - General Chief Complaint: Eye Problems Stated Complaint: EYE IRRITATION Time Seen by Provider: 02/07/19 15:29 Source of Information: Reports: Patient History Limitations: Reports: No Limitations - History of Present Illness INITIAL COMMENTS - FREE TEXT/NARRATIVE: HISTORY AND PHYSICAL: History of present illness: Patient is a 58-year-old female who presents to the emergency room with complaints of bilateral eye irritation, redness and itching. She states symptoms have been ongoing over the past 2 weeks. She denies any allergies, new eye products or exposure to chemicals. She states she has been using an over-the -counter lubricating eyedrop once daily and did have minimal relief with this. She states that the itching is "driving him crazy". She has not used any over- the-counter antihistamines medications for her symptoms. She does not wear contact lenses or corrective glasses. Patient denies any fever, chills, headache, change in vision, syncope or near syncope. Denies any chest pain, back pain, shortness of breath or cough. Denies any abdominal pain, nausea, vomiting, diarrhea, constipation or dysuria. Has not noted any blood in urine or stool. Patient has been eating and drinking appropriately. Review of systems: As per history of present illness and below otherwise all systems reviewed and negative. Past medical history: As per history of present illness and as reviewed below otherwise noncontributory. Surgical history: As per history of present illness and as reviewed below otherwise noncontributory. Social history: See social history for further information Family history: As per history of present illness and as reviewed below otherwise noncontributory. Physical exam: General: Well-developed and well-nourished 58-year-old female. Alert and oriented. Nontoxic appearing and in no acute distress. HEENT: Atraumatic, normocephalic, pupils equal and reactive bilaterally, negative for conjunctival pallor or scleral icterus, bilateral scleral injection , mucous membranes moist, trachea midline. No drooling or trismus noted. No meningeal signs. No hot potato voice noted. Lungs: Clear to auscultation, breath sounds equal bilaterally, chest nontender. Heart: S1S2, regular rate and rhythm without overt murmur Skin: Intact, warm, dry. No lesions or rashes noted. Extremities: Atraumatic, moves all extremities per self without difficulty or deficits, negative for cords or calf pain. Neurovascular unremarkable. Neuro: Awake, alert, oriented. Cranial nerves II through XII unremarkable. Cerebellum unremarkable. Motor and sensory unremarkable throughout. Exam nonfocal. Notes: Patient reports that she has been rubbing her eyes frequently due to the itching sensation. Upon my initial exam does appear that she has small abrasion to bilateral sclera, likely from rubbing her eye so frequently. We did discuss follow-up with the electric golf cart repairer. She states she will make an appointment today to try to get in next week. The symptoms are likely allergic in nature. Supportive care measures were reviewed and discussed. Voices understanding and is agreeable to plan of care. Denies any further questions or concerns at this time. Diagnostics: Eye Exam Therapeutics: None Prescription: Medrol Dosepak Erythromycin ointment Impression: Allergic conjunctivitis Corneal abrasion Dry eye Plan: 1. Try to avoid rubbing your eyes. 2. Take the medications as prescribed 3. Frequently use the [id number] lubricating eyedrop as we discussed. Nondrowsy Benadryl as directed or Zyrtec. 4. Follow-up with the electric golf cart repairer for your routine eye exam and follow up as we discussed. 5. Return to the ED as needed and as discussed. Definitive disposition and diagnosis as appropriate pending reevaluation and review of above. Bilateral Eyes Pain Score (Numeric/FACES): 10 - Related Data Allergies Allergy/AdvReac Type Severity Reaction Status Date / Time No Known Allergies Allergy Verified 02/07/19 15:24 Home Meds: Home Meds Omeprazole Magnesium [Prilosec Otc] 20 mg PO DAILY 02/07/19 [History] Past Medical History HEENT History: Reports: Allergic Rhinitis, Other (See Below) Other HEENT History: top and bottom denture Cardiovascular History: Reports: Hypertension Respiratory History: Reports: COPD Other Respiratory History: 43 yr history of smoking, currently down to 5 to 6 cigarettes per day, COPD dx 2016 Gastrointestinal History: Reports: Colon Polyp, GERD Other Gastrointestinal History: "terrible heartburn" Genitourinary History: Reports: None 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) Other Musculoskeletal History: Low back pain, 'some arthritis to hands, hx: fracturing ribs, Neurological History: Reports: Other (See Below) Other Neuro History: "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" Endocrine/Metabolic History: Reports: Hyperthyroidism, Hypothyroidism Other Endocrine/Metabolic History: pt takes levothyroxine Dermatologic History: Reports: Cellulitis Other Dermatologic History: left inner thigh - Past Surgical History Head Surgeries/Procedures: Reports: None HEENT Surgical History: Reports: Tonsillectomy GI Surgical History: Reports: Colonoscopy Female Surgical History: Reports: Cervical Cryotherapy, Hysterectomy Other Female Surgeries/Procedures: Partial hysterectomy, Conization of Cervix Other Oncologic Surgeries/Procedures: Cervical conization Social & Family History - Family History Family Medical History: Noncontributory - Caffeine Use Caffeine Use: Reports: Coffee Caffeine Use Comment: 2-3 cups/day - Living Situation & Occupation Living situation: Reports: Single Occupation: Employed ED ROS GENERAL - Review of Systems Review Of Systems: ROS reveals no pertinent complaints other than HPI. ED EXAM GENERAL W FULL EYE - Physical Exam Exam: See Below (See dictation) Course - Vital Signs Last Recorded V/S: Last Vital Signs Temp 98.4 F 02/07/19 15:24 Pulse 88 02/07/19 15:24 Resp 18 02/07/19 15:24 BP 152/92 H 02/07/19 15:24 Pulse Ox 95 02/07/19 15:24 Departure - Departure Time of Disposition: 16:08 Disposition: Home, Self-Care 01 Clinical Impression: Allergic conjunctivitis of both eyes, Dry eye Corneal abrasion Qualifiers: Encounter type: initial encounter Laterality: left Qualified Code(s): S05.02XA - Injury of conjunctiva and corneal abrasion without foreign body, left eye, initial encounter - Discharge Information Instructions: Allergic Conjunctivitis, Adult, [id number], Corneal Abrasion, [id number] Referrals: PCP,None [Primary Care Provider] - Forms: ED Department Discharge Additional Instructions: The following information is given to patients seen in the emergency department who are being discharged to home. This information is to outline your options for follow-up care. We provide all patients seen in our emergency department with a follow-up referral. The need for follow-up, as well as the timing and circumstances, are variable depending upon the specifics of your emergency department visit. If you don't have a primary care physician on staff, we will provide you with a referral. We always advise you to contact your personal physician following an emergency department visit to inform them of the circumstance of the visit and for follow-up with them and/or the need for any referrals to a consulting specialist. The emergency department will also refer you to a specialist when appropriate. This referral assures that you have the opportunity for follow-up care with a specialist. All of these measure are taken in an effort to provide you with optimal care, which includes your follow-up. Under all circumstances we always encourage you to contact your private physician who remains a resource for coordinating your care. When calling for follow-up care, please make the office aware that this follow-up is from your recent emergency room visit. If for any reason you are refused follow-up, please contact the [facility] Emergency Department at and asked to speak to the emergency department charge nurse. [facility] [address] [place] [address] [id number] [address] [id number] 1. Try to avoid rubbing your eyes. 2. Take the medications as prescribed 3. Frequently use the [id number] lubricating eyedrop as we discussed. Nondrowsy Benadryl as directed or Zyrtec. 4. Follow-up with the electric golf cart repairer for your routine eye exam and follow up as we discussed. 5. Return to the ED as needed and as discussed.
[2019-02-07 15:31] VITALS: BP 152/92
== END 2019-02-07 16:07 | disposition home or self-care (01) ==
LOC: MW.ED 15:16
DX: S05.02XA Injury of conjunctiva and corneal abrasion without foreign body, left eye, initial encounter (principal); H10.13 Acute atopic conjunctivitis, bilateral; H04.123 Dry eye syndrome of bilateral lacrimal glands; X58.XXXA Exposure to other specified factors, initial encounter
CPT/HCPCS: 99283

== ENCOUNTER 2019-03-07 01:16 | Emergency (ER) | payer SELFPAY ==
[2019-03-07 01:28] VITALS: BP 153/83
--- NOTE | 2019-03-07 01:38 | EDM.PDOC ---
ED HPI GENERAL MEDICAL PROBLEM - General Chief Complaint: Eye Problems Stated Complaint: EYE INFECTION IN BOTH EYES Time Seen by Provider: 03/07/19 01:24 - History of Present Illness INITIAL COMMENTS - FREE TEXT/NARRATIVE: HISTORY AND PHYSICAL: History of present illness: Patient's 58-year-old white female presents with a concern of bilateral red irritated eyes she had similar episodes in the past was treated as allergic conjunctivitis with erythromycin ophthalmic ointment with good resolution. She thinks this may been related to some eyeliner she was yesterday. Review of systems: As per history of present illness and below otherwise all systems reviewed and negative. Past medical history: As per history of present illness and as reviewed below otherwise noncontributory. Surgical history: As per history of present illness and as reviewed below otherwise noncontributory. Social history: No reported history of drug or alcohol abuse. Family history: As per history of present illness and as reviewed below otherwise noncontributory. Physical exam: HEENT: Atraumatic, normocephalic, pupils reactive, negative for conjunctival pallor or scleral icterus, mucous membranes moist, throat clear, neck supple, nontender, trachea midline. Injected conjunctiva bilaterally anterior chamber clear no evidence of corneal abrasion now for evidence of foreign body Lungs: Clear to auscultation, breath sounds equal bilaterally, chest nontender. Heart: S1S2, regular, negative for clicks, rubs, or JVD. Abdomen: Soft, nondistended, nontender. Negative for masses or hepatosplenomegaly. Negative for costovertebral tenderness. Pelvis: Stable nontender. Genitourinary: Deferred. Rectal: Deferred. Extremities: Atraumatic, negative for cords or calf pain. Neurovascular unremarkable. Neuro: Awake, alert, oriented. Cranial nerves II through XII unremarkable. Cerebellum unremarkable. Motor and sensory unremarkable throughout. Exam nonfocal. Diagnostics: None Therapeutics: None Impression: # 1 conjunctivitis Definitive disposition and diagnosis as appropriate pending reevaluation and review of above. - Related Data Allergies Allergy/AdvReac Type Severity Reaction Status Date / Time No Known Allergies Allergy Verified 03/07/19 01:28 Home Meds: Home Meds . 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) Other Musculoskeletal History: Low back pain, 'some arthritis to hands, hx: fracturing ribs, Neurological History: Reports: Other (See Below) Other Neuro History: "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" Endocrine/Metabolic History: Reports: Hyperthyroidism, Hypothyroidism Other Endocrine/Metabolic History: pt takes levothyroxine Oncologic (Cancer) History: Reports: None Dermatologic History: Reports: Cellulitis Other Dermatologic History: left inner thigh - Past Surgical History Head Surgeries/Procedures: Reports: None HEENT Surgical History: Reports: Tonsillectomy Cardiovascular Surgical History: Reports: None Respiratory Surgical History: Reports: None GI Surgical History: Reports: Colonoscopy Female Surgical History: Reports: Cervical Cryotherapy, Hysterectomy Other Female Surgeries/Procedures: Partial hysterectomy, Conization of Cervix Oncologic Surgical History: Reports: None Other Oncologic Surgeries/Procedures: Cervical conization Social & Family History - Family History Family Medical History: Noncontributory - Tobacco Use Smoking Status *Q: Current Every Day Smoker Years of Tobacco use: 43 Packs/Tins Daily: 0.5 - Caffeine Use Caffeine Use: Reports: Coffee Caffeine Use Comment: 2-3 cups/day - Alcohol Use Days Per Week of Alcohol Use: 7 Number of Drinks Per Day: 2 Total Drinks Per Week: 14 - Recreational Drug Use Recreational Drug Use: No - Living Situation & Occupation Living situation: Reports: Single Occupation: Employed ED ROS GENERAL - Review of Systems Review Of Systems: ROS reveals no pertinent complaints other than HPI. ED EXAM GENERAL W FULL EYE - Physical Exam Exam: See Below (See dictation) Course - Vital Signs Last Recorded V/S: Last Vital Signs Temp 35.9 C 03/07/19 01:26 Pulse 88 03/07/19 01:26 Resp 18 03/07/19 01:26 BP 153/83 H 03/07/19 01:26 Pulse Ox 96 03/07/19 01:26 Departure - Departure Time of Disposition: 01:37 Disposition: Home, Self-Care 01 Condition: Good Clinical Impression: Conjunctivitis - Discharge Information Referrals: PCP,None [Primary Care Provider] - Additional Instructions: The following information is given to patients seen in the emergency department who are being discharged to home. This information is to outline your options for follow-up care. We provide all patients seen in our emergency department with a follow-up referral. The need for follow-up, as well as the timing and circumstances, are variable depending upon the specifics of your emergency department visit. If you don't have a primary care physician on staff, we will provide you with a referral. We always advise you to contact your personal physician following an emergency department visit to inform them of the circumstance of the visit and for follow-up with them and/or the need for any referrals to a consulting specialist. The emergency department will also refer you to a specialist when appropriate. This referral assures that you have the opportunity for followup care with a specialist. All of these measure are taken in an effort to provide you with optimal care, which includes your followup. Under all circumstances we always encourage you to contact your private physician who remains a resource for coordinating your care. When calling for followup care, please make the office aware that this follow-up is from your recent emergency room visit. If for any reason you are refused follow-up, please contact the [facility] emergency department at and asked to speak to the emergency department charge nurse. [facility] [address] [place] [id number] Erythromycin ophthalmic ointment as prescribed Benadryl as directed follow-up ophthalmology above call to schedule routine appointment and return as needed as discussed
== END 2019-03-07 01:52 | disposition home or self-care (01) ==
LOC: MW.ED 01:16
DX: H10.9 Unspecified conjunctivitis (principal); I10 Essential (primary) hypertension; J44.9 Chronic obstructive pulmonary disease, unspecified; F17.210 Nicotine dependence, cigarettes, uncomplicated
CPT/HCPCS: 99282; 99283

== ENCOUNTER 2019-05-22 19:09 | Emergency (ER) | payer SELFPAY ==
[2019-05-22 19:22] VITALS: BP 148/86; PULSE 114
[2019-05-22] MEDS ORDERED: Mupirocin Oint 22 GM Tube TOP ONE (19:38)
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
== END 2019-05-22 20:06 | disposition home or self-care (01) ==
LOC: MW.ED 19:09
DX: S61.402A Unspecified open wound of left hand, initial encounter (principal); L03.116 Cellulitis of left lower limb; I10 Essential (primary) hypertension; F17.210 Nicotine dependence, cigarettes, uncomplicated; Z90.710 Acquired absence of both cervix and uterus; Z98.890 Other specified postprocedural states; X58.XXXA Exposure to other specified factors, initial encounter
CPT/HCPCS: 99283; A9270

== ENCOUNTER 2019-08-29 10:04 | Emergency (ER) | payer OTHER ==
--- NOTE | 2019-08-29 10:37 | EDM.PDOC ---
ED HPI GENERAL MEDICAL PROBLEM - General Chief Complaint: Genitourinary Problem Stated Complaint: BLADDER INFECTION Time Seen by Provider: 08/29/19 10:37 Source of Information: Reports: Patient History Limitations: Reports: No Limitations - History of Present Illness INITIAL COMMENTS - FREE TEXT/NARRATIVE: HISTORY AND PHYSICAL: History of present illness: Patient is a 59-year-old female presents to the ED with concern of UTI. She states for the past week she has been having frequent urination and pain with urination. She has taken AZO without relief of symptoms. She denies a hematuria , vaginal discharge, fevers, chills, abdominal pain, back pain, nausea or vomiting. Review of systems: As per history of present illness and below otherwise all systems reviewed and negative. Past medical history: As per history of present illness and as reviewed below otherwise noncontributory. Surgical history: As per history of present illness and as reviewed below otherwise noncontributory. Social history: No reported history of drug or alcohol abuse. Family history: As per history of present illness and as reviewed below otherwise noncontributory. Physical exam: General: Patient sitting comfortably in no acute distress and nontoxic appearing HEENT: Atraumatic, normocephalic, pupils reactive, negative for conjunctival pallor or scleral icterus, mucous membranes moist, throat clear, neck supple, nontender, trachea midline. No meningeal signs. Lungs: Clear to auscultation, breath sounds equal bilaterally, chest nontender. Heart: S1S2, regular, negative for clicks, rubs, or overt murmur. Abdomen: Soft, nondistended, nontender. Negative for masses or hepatosplenomegaly. Negative for costovertebral tenderness. No rigidity, rebound , guarding. Pelvis: Stable nontender. Genitourinary: Deferred. Rectal: Deferred. Extremities: Atraumatic, negative for cords or calf pain. Neurovascular unremarkable. Neuro: Awake, alert, oriented. Cranial nerves II through XII unremarkable. Cerebellum unremarkable. Motor and sensory unremarkable throughout. Exam nonfocal. Notes: Diagnostics: UA Therapeutics: [] Prescriptions: Impression: [] Plan: [] Definitive disposition and diagnosis as appropriate pending reevaluation and review of above. 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: Other (see below) Other Treatments HAWK MISSILE SYSTEM CREWMEMBER: AZO "WHEN I PEE" Pain Score (Numeric/FACES): 7 - Related Data Allergies Allergy/AdvReac Type Severity Reaction Status Date / Time No Known Allergies Allergy Verified 08/29/19 10:21 Home Meds: Home Meds Nitrofurantoin Monohyd/M-Cryst [Macrobid 100 mg Capsule] 100 mg PO BID 7 Days # 14 capsule 08/29/19 [Rx] Phenazopyridine HCl [Azo Standard] 95 mg PO 08/29/19 [History] Past Medical History HEENT History: Reports: Allergic Rhinitis, Other (See Below) Other HEENT History: top and bottom denture Cardiovascular History: Reports: Hypertension Respiratory History: Reports: COPD Other Respiratory History: 43 yr history of smoking, currently down to 5 to 6 cigarettes per day, COPD dx 2016 Gastrointestinal History: Reports: Colon Polyp, GERD Other Gastrointestinal History: "terrible heartburn" Genitourinary History: Reports: None 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: Reports: Other (See Below) Other Musculoskeletal History: Low back pain, 'some arthritis to hands, hx: fracturing ribs, Neurological History: Reports: Other (See Below) Other Neuro History: "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" Endocrine/Metabolic History: Reports: Hyperthyroidism, Hypothyroidism Other Endocrine/Metabolic History: pt takes levothyroxine Oncologic (Cancer) History: Reports: None Dermatologic History: Reports: Cellulitis Other Dermatologic History: left inner thigh - Infectious Disease History Infectious Disease History: Reports: Chicken Pox, Measles - Past Surgical History Head Surgeries/Procedures: Reports: None HEENT Surgical History: Reports: Tonsillectomy Cardiovascular Surgical History: Reports: None Respiratory Surgical History: Reports: None GI Surgical History: Reports: Colonoscopy Female Surgical History: Reports: Cervical Cryotherapy, Hysterectomy Other Female Surgeries/Procedures: Partial hysterectomy, Conization of Cervix Oncologic Surgical History: Reports: None Other Oncologic Surgeries/Procedures: Cervical conization Social & Family History - Family History Family Medical History: Noncontributory - Tobacco Use Smoking Status *Q: Current Every Day Smoker Years of Tobacco use: 45 Packs/Tins Daily: 0.2 - Caffeine Use Caffeine Use: Reports: None Caffeine Use Comment: 2-3 cups/day - Alcohol Use Days Per Week of Alcohol Use: 7 Number of Drinks Per Day: 2 Total Drinks Per Week: 14 - Recreational Drug Use Recreational Drug Use: No - Living Situation & Occupation Living situation: Reports: Single Occupation: Employed ED ROS GENERAL - Review of Systems Review Of Systems: Comprehensive ROS is negative, except as noted in HPI. ED EXAM, RENAL/ - Physical Exam Exam: See Below (see dictation) Course - Vital Signs Last Recorded V/S: Last Vital Signs Temp 97.0 F 08/29/19 10:26 Pulse 92 08/29/19 10:26 Resp 16 08/29/19 10:26 BP 132/91 H 08/29/19 10:26 Pulse Ox 96 08/29/19 10:26 - Orders/Labs/Meds Orders: Active Orders 24 hr Category Date Time Status CULTURE URINE [RM] Stat Lab 08/29/19 10:18 Received Labs: Laboratory Tests 08/29/19 Range/Units 10:18 Urine Color YELLOW Urine Appearance SLT CLOUDY Urine pH 6.0 (5.0-8.0) Ur Specific [place] 1.015 (1.001-1.035) Urine Protein NEGATIVE (NEGATIVE) mg/dL Urine Glucose (UA) NEGATIVE (NEGATIVE) mg/dL Urine Ketones NEGATIVE (NEGATIVE) mg/dL Urine Occult Blood SMALL H (NEGATIVE) Urine Nitrite NEGATIVE (NEGATIVE) Urine Bilirubin NEGATIVE (NEGATIVE) Urine Urobilinogen 0.2 (<2.0) EU/dL Ur Leukocyte Esterase LARGE H (NEGATIVE) Urine RBC 3-5 (0-2/HPF) Urine WBC 70-80 (0-5/HPF) Ur Epithelial Cells RARE (NONE-FEW) Urine Bacteria 1+ H (NEGATIVE) Departure - Departure Time of Disposition: 11:42 Disposition: Home, Self-Care 01 Condition: Good Clinical Impression: UTI (urinary tract infection) - Discharge Information Prescriptions: Nitrofurantoin Monohyd/M-Cryst [Macrobid 100 mg Capsule] 100 mg PO BID 7 Days # 14 capsule Referrals: PCP,None [Primary Care Provider] - Forms: ED Department Discharge Additional Instructions: The following information is given to patients seen in the emergency department who are being discharged to home. This information is to outline your options for follow-up care. We provide all patients seen in our emergency department with a follow-up referral. The need for follow-up, as well as the timing and circumstances, are variable depending upon the specifics of your emergency department visit. If you don't have a primary care physician on staff, we will provide you with a referral. We always advise you to contact your personal physician following an emergency department visit to inform them of the circumstance of the visit and for follow-up with them and/or the need for any referrals to a consulting specialist. The emergency department will also refer you to a specialist when appropriate. This referral assures that you have the opportunity for follow-up care with a specialist. All of these measure are taken in an effort to provide you with optimal care, which includes your follow-up. Under all circumstances we always encourage you to contact your private physician who remains a resource for coordinating your care. When calling for follow-up care, please make the office aware that this follow-up is from your recent emergency room visit. If for any reason you are refused follow-up, please contact the [facility] Emergency Department at and asked to speak to the emergency department charge nurse. [facility] [address] [place], [place] [id number] [place] [id number] Drink plenty of fluids and take antibiotic as directed. Follow up with primary care provider Return to ED as needed as discussed Sepsis Event Note - Evaluation Sepsis Screening Result: No Definite Risk - Focused Exam Vital Signs: Vital Signs Temp Pulse Resp BP Pulse Ox 08/29/19 10:26 97.0 F 92 16 132/91 H 96 Date Exam was Performed: 08/29/19 Time Exam was Performed: 11:42 - My Orders Last 24 Hours: My Active Orders 08/29/19 10:18 CULTURE URINE [RM] Stat - Assessment/Plan Last 24 Hours: My Active Orders 08/29/19 10:18 CULTURE URINE [RM] Stat
[2019-08-29 11:50] VITALS: BP 133/86; PULSE 80
== END 2019-08-29 11:55 | disposition home or self-care (01) ==
LOC: MW.ED 10:04
DX: N39.0 Urinary tract infection, site not specified (principal); F17.210 Nicotine dependence, cigarettes, uncomplicated; Z98.890 Other specified postprocedural states; Z90.710 Acquired absence of both cervix and uterus
CPT/HCPCS: 81001; 87086; 87088; 87186; 99283

== ENCOUNTER 2022-08-02 16:11 | Emergency (ER) | payer SELFPAY ==
[2022-08-02] MEDS ORDERED: HYDROmorphone 1 MG/ML Syringe IVPUSH ONE (16:27)
[2022-08-02] MEDS ORDERED: Ondansetron 4 MG/2 ML SDV IVPUSH ONE (16:37)
[2022-08-02] MEDS ORDERED: Lidocaine 2% 5 ML SDV INJECT ONE (16:47)
[2022-08-02 18:22] VITALS: BP 133/72; PULSE 74
== END 2022-08-02 18:28 | disposition home or self-care (01) ==
LOC: MW.ED 16:11
DX: L73.2 Hidradenitis suppurativa (principal); I10 Essential (primary) hypertension; J44.9 Chronic obstructive pulmonary disease, unspecified; E03.9 Hypothyroidism, unspecified; K21.9 Gastro-esophageal reflux disease without esophagitis; F17.210 Nicotine dependence, cigarettes, uncomplicated
CPT/HCPCS: 96374; 96375; 99283; J1170; J2405

== ENCOUNTER 2022-08-04 16:41 | Emergency (ER) | payer SELFPAY ==
[2022-08-04 16:48] VITALS: BP 135/87; PULSE 79
== END 2022-08-04 17:20 | disposition home or self-care (01) ==
LOC: MW.ED 16:41
DX: Z48.00 Encounter for change or removal of nonsurgical wound dressing (principal); L02.412 Cutaneous abscess of left axilla
CPT/HCPCS: 99282

== ENCOUNTER 2022-11-14 11:45 | Emergency (ER) | payer SELFPAY ==
[2022-11-14] MEDS ORDERED: Albuterol/Ipratropium 3.0-0.5 MG/3 ML Neb Soln NEB ONE (12:13)
[2022-11-14] MEDS ORDERED: methylPREDNISolone Sodium Succinate 125 MG/2 ML SDV IVPUSH ONE (12:13)
[2022-11-14 12:36] LABS: CORONAVIRUS COVID-19 NAA NEGATIVE (NEGATIVE); INFLUENZA A NAA NEGATIVE (NEGATIVE); INFLUENZA B NAA NEGATIVE (NEGATIVE); RESPIRATORY SYNCYTIAL VIR NAA NEGATIVE (NEGATIVE)
[2022-11-14 12:52] VITALS: BP 125/76; PULSE 81
[2022-11-14 13:16] LABS: CARBON DIOXIDE,CO2 28.6 mmol/L (21.0-32.0)
[2022-11-14] MEDS ORDERED: Azithromycin 500 MG in Sodium Chloride 0.9% 250 ML IV ONE (13:32)
[2022-11-14] MEDS ORDERED: cefTRIAXone 1 GM in Sodium Chloride 0.9% 50 ML IV ONE (13:32)
== END 2022-11-14 13:50 | disposition left against medical advice (07) ==
LOC: MW.ED 11:45
DX: J18.9 Pneumonia, unspecified organism (principal); R09.02 Hypoxemia; J44.9 Chronic obstructive pulmonary disease, unspecified; I10 Essential (primary) hypertension; Z72.0 Tobacco use; Z20.822 Contact with and (suspected) exposure to COVID-19
CPT/HCPCS: 0241U; 36415; 71045; 71045-26; 80053; 83605; 83690; 83880; 84484; 85025; 93005; 96374; 99285-25; J2930; J7620-GY

== ENCOUNTER 2022-11-22 13:20 | Observation (INO) | payer SELFPAY ==
[2022-11-22] MEDS ORDERED: Albuterol/Ipratropium 4 GM Inhalation Spray INH STA (13:43)
[2022-11-22] MEDS ORDERED: methylPREDNISolone Sodium Succinate 125 MG/2 ML SDV IVPUSH ONE (13:43)
[2022-11-22 14:19] LABS: CARBON DIOXIDE,CO2 28.1 mmol/L (21.0-32.0); POTASSIUM,K 3.6 mmol/L (3.5-5.1)
[2022-11-22 14:22] LABS: CORONAVIRUS COVID-19 NAA NEGATIVE (NEGATIVE); INFLUENZA A NAA NEGATIVE (NEGATIVE); INFLUENZA B NAA NEGATIVE (NEGATIVE)
[2022-11-22] MEDS ORDERED: Iopamidol 755 MG/ML 500 ML Multipack Bottle IVPUSH ONE (15:29)
[2022-11-22] MEDS ORDERED: cefTRIAXone 1 GM in Sodium Chloride 0.9% 50 ML IV ONE (16:17)
[2022-11-22] MEDS ORDERED: Azithromycin 500 MG in Sodium Chloride 0.9% 250 ML IV ONE (16:18)
[2022-11-22] MEDS ORDERED: Albuterol/Ipratropium 3.0-0.5 MG/3 ML Neb Soln NEB PRN (18:30)
[2022-11-22] MEDS ORDERED: Enoxaparin 40 MG/0.4 ML Syringe SUBCUT SCH (18:30)
[2022-11-22] MEDS ORDERED: Acetaminophen 325 MG Tab PO PRN (18:30)
[2022-11-22] MEDS ORDERED: LORazepam 2 MG/ML SDV IM PRN (18:30)
[2022-11-22] MEDS ORDERED: Albuterol/Ipratropium 3.0-0.5 MG/3 ML Neb Soln INH PRN (18:36)
[2022-11-22] MEDS: Pantoprazole 40 MG Tab.CR PO SCH (21:31)
[2022-11-22] MEDS: Enoxaparin 40 MG/0.4 ML Syringe SUBCUT SCH (21:31)
[2022-11-23] MEDS ORDERED: SODIUM CHLORIDE 0.9% IV ONE (04:37)
[2022-11-23] MEDS ORDERED: METHYLPREDNISOLONE SOD SUCC IV ONE (04:37)
[2022-11-23 07:41] LABS: HEMOGLOBIN A1C 5.9 %
[2022-11-23] MEDS ORDERED: methylPREDNISolone Sodium Succinate 125 MG/2 ML SDV IVPUSH ONE (08:00)
[2022-11-23] MEDS ORDERED: Azithromycin 250 MG Tab PO SCH (09:00)
[2022-11-23] MEDS ORDERED: cefTRIAXone 1 GM in Sodium Chloride 0.9% 50 ML IV SCH ×2 (09:30→16:30)
[2022-11-23] MEDS ORDERED: Albuterol/Ipratropium 3.0-0.5 MG/3 ML Neb Soln NEB SCH (10:00)
[2022-11-23] MEDS ORDERED: Sodium Chloride 0.9% 10 ML Syringe FLUSH PRN (10:20)
[2022-11-23] MEDS ORDERED: Sodium Chloride 0.9% 2.5 ML Syringe FLUSH PRN (10:20)
[2022-11-23] MEDS: Fluticasone/Salmeterol 250-50 MCG Inhalation Powder 14/Diskus INH SCH ×2 (10:50→21:23)
[2022-11-23] MEDS: methylPREDNISolone Sodium Succinate 40 MG/1 ML SDV IVPUSH SCH ×2 (14:29→21:22)
[2022-11-23] MEDS: Albuterol 0.083% 2.5 MG/3 ML Neb Soln NEB SCH ×3 (14:52→21:22)
[2022-11-23] MEDS: Ipratropium 0.02% 0.5 MG/2.5 ML Neb Soln NEB SCH ×3 (14:52→21:22)
[2022-11-23] MEDS: Enoxaparin 40 MG/0.4 ML Syringe SUBCUT SCH (21:20)
[2022-11-23] MEDS: Pantoprazole 40 MG Tab.CR PO SCH (21:22)
[2022-11-24] MEDS: Ipratropium 0.02% 0.5 MG/2.5 ML Neb Soln NEB SCH ×4 (02:37→14:47)
[2022-11-24] MEDS: Albuterol 0.083% 2.5 MG/3 ML Neb Soln NEB SCH ×4 (02:37→14:47)
[2022-11-24 06:00] LABS: CARBON DIOXIDE,CO2 29.8 mmol/L (21.0-32.0)
[2022-11-24] MEDS: methylPREDNISolone Sodium Succinate 40 MG/1 ML SDV IVPUSH SCH ×2 (06:41→14:15)
[2022-11-24 08:16] VITALS: BP 115/54
[2022-11-24] MEDS: Fluticasone/Salmeterol 250-50 MCG Inhalation Powder 14/Diskus INH SCH (09:22)
[2022-11-24 13:37] VITALS: PULSE 73
== END 2022-11-24 15:07 | disposition home or self-care (01) ==
LOC: MW.ED 13:20 → MW.MS 16:32
PROVIDERS: ADMIT Pediatrics; ATTEND Pediatrics
DX: J44.1 Chronic obstructive pulmonary disease with (acute) exacerbation (principal); J96.01 Acute respiratory failure with hypoxia; F10.10 Alcohol abuse, uncomplicated; R73.03 Prediabetes; K21.9 Gastro-esophageal reflux disease without esophagitis; I10 Essential (primary) hypertension; E05.90 Thyrotoxicosis, unspecified without thyrotoxic crisis or storm; F17.210 Nicotine dependence, cigarettes, uncomplicated; Z79.899 Other long term (current) drug therapy; Z20.822 Contact with and (suspected) exposure to COVID-19; Y90.0 Blood alcohol level of less than 20 mg/100 ml
CPT/HCPCS: 0240U; 36415; 71045; 71275; 80048; 80053; 80305; 80307; 81001; 82803; 83036; 83605; 83735; 84443; 84484; 85025; 85379; 86140; 93005; 94640; 94664; 94667; 94668; 96365; 96367; 96372; 96375; 96376; 99285; A9270; G0378; J0456; J0696; J1650; J2920; J2930; J7050; Q9967; 99222; 99232; 99238; J3490; J7620-GY

== ENCOUNTER 2022-12-25 11:34 | Emergency (ER) | payer MEDICAID ==
[2022-12-25 11:46] VITALS: BP 128/70; PULSE 90
[2022-12-25] MEDS ORDERED: predniSONE 10 MG Tab PO ONE (12:44)
[2022-12-25] MEDS ORDERED: Albuterol/Ipratropium 3.0-0.5 MG/3 ML Neb Soln NEB ONE (12:44)
[2022-12-25] MEDS ORDERED: Azithromycin 250 MG Tab PO ONE (14:00)
== END 2022-12-25 14:16 | disposition home or self-care (01) ==
LOC: MW.ED 11:34
DX: J44.1 Chronic obstructive pulmonary disease with (acute) exacerbation (principal); R09.02 Hypoxemia; K21.9 Gastro-esophageal reflux disease without esophagitis; I10 Essential (primary) hypertension; F17.210 Nicotine dependence, cigarettes, uncomplicated; Z91.030 Bee allergy status; Z79.899 Other long term (current) drug therapy
CPT/HCPCS: 71046; 94640; 99285; A9270; 99283; J7620-GY

== ENCOUNTER 2023-03-18 03:01 | Emergency (ER) | payer SELFPAY ==
[2023-03-18] MEDS ORDERED: Enoxaparin 100 MG/1 ML Syringe SUBCUT STA (03:14)
[2023-03-18] MEDS ORDERED: Cephalexin 500 MG Cap PO ONE (03:17)
[2023-03-18 03:38] VITALS: BP 148/76; PULSE 81
== END 2023-03-18 03:35 ==
LOC: MW.ED 03:01
DX: R22.0 Localized swelling, mass and lump, head (principal); J44.9 Chronic obstructive pulmonary disease, unspecified; I10 Essential (primary) hypertension; E05.90 Thyrotoxicosis, unspecified without thyrotoxic crisis or storm; K21.9 Gastro-esophageal reflux disease without esophagitis; F17.210 Nicotine dependence, cigarettes, uncomplicated; Z79.899 Other long term (current) drug therapy
CPT/HCPCS: 96372; 99283; A9270; J1650

== ENCOUNTER 2023-03-18 10:33 | Emergency (ER) | payer OTHER ==
[2023-03-18 11:14] LABS: BASOPHILS PERCENT AUTO 0.4 % (0.0-1.5); EOSINOPHILS PERCENT AUTO 0.4 % (0.0-7.0); HEMATOCRIT 41.1 % (36.0-46.0); HEMOGLOBIN 13.8 g/dL (12.0-16.0); LYMPHOCYTES ABSOLUTE AUTO 1.3 K/uL (0.6-2.4); LYMPHOCYTES PERCENT AUTO 23.9 % (16.0-40.0); MEAN CORPUSCULAR HEMOGLOBIN 30.3 pg (27.0-32.0); MEAN CORPUSCULAR HGB CONC 33.6 g/dL (31.0-37.0); MEAN CORPUSCULAR VOLUME 90.1 fL (80.0-98.0); MONOCYTES ABSOLUTE AUTO 0.5 K/uL (0.0-0.8); MONOCYTES PERCENT AUTO 8.2 % (0.0-15.0); NEUTROPHILS ABSOLUTE AUTO 3.7 K/uL (1.4-5.7); NEUTROPHILS PERCENT AUTO 67.1 % (48.0-80.0); PLATELET COUNT,PLT 259 K/uL (150-400); RED BLOOD CELL COUNT 4.56 M/uL (4.30-5.90); WHITE BLOOD CELL COUNT,WBC 5.52 K/uL (4.0-11.0)
[2023-03-18 11:40] LABS: A/G RATIO 0.8 (0.9-1.6); ALBUMIN 3.4 g/dL (3.4-5.0); BILIRUBIN TOTAL 0.9 mg/dL (0.2-1.0); CALCIUM 8.8 mg/dL (8.5-10.1); CARBON DIOXIDE,CO2 24.9 mmol/L (21.0-32.0); CREATININE 0.8 mg/dL (0.6-1.0); EST CRCL DRUG DOSING (CG) 79.86 mL/min; POTASSIUM,K 4.3 mmol/L (3.5-5.1); PROTEIN TOTAL,TP 7.9 g/dL (6.4-8.2)
[2023-03-18 13:29] VITALS: BP 143/83; PULSE 80
== END 2023-03-18 12:45 ==
LOC: MW.ED 10:33
DX: M71.21 Synovial cyst of popliteal space [Baker], right knee (principal); I10 Essential (primary) hypertension; K21.9 Gastro-esophageal reflux disease without esophagitis; E03.9 Hypothyroidism, unspecified; Z91.030 Bee allergy status; Z79.899 Other long term (current) drug therapy
CPT/HCPCS: 36415; 80053; 85025; 93971-26-RT; 93971-RT; 99283; 99284

== ENCOUNTER 2024-04-21 11:16 | Emergency (ER) | payer SELFPAY ==
[2024-04-21] MEDS ORDERED: Sodium Chloride 0.9% 10 ML Syringe FLUSH PRN ×2 (11:17)
[2024-04-21] MEDS ORDERED: Sodium Chloride 0.9% 2.5 ML Syringe FLUSH PRN ×2 (11:17)
[2024-04-21] MEDS: propofoL 100 ML ONE (11:20)
[2024-04-21] MEDS: fentaNYL/Normal Saline 2,500 MCG in Premix Bag 1 BAG IV PRN (11:20)
[2024-04-21] MEDS ORDERED: propofoL 100 ML IV SCH ×2 (11:20→11:30)
[2024-04-21] MEDS: propofoL 100 ML IV SCH (11:30)
[2024-04-21 11:33] LABS: BASOPHILS ABSOLUTE AUTO 0.04 K/uL (0.00-0.20); BASOPHILS PERCENT AUTO 0.4 % (0.0-1.0); EOSINOPHILS ABSOLUTE AUTO 0.08 K/uL (0.00-0.45); EOSINOPHILS PERCENT AUTO 0.8 % (0.0-6.0); HEMATOCRIT 42.6 % (37.0-47.0); IMMATURE GRAN ABSOLUTE AUTO 0.15 K/uL (0.00-0.05); IMMATURE GRAN PERCENT AUTO 1.5 % (0.0-0.4); LYMPHOCYTES ABSOLUTE AUTO 2.37 K/uL (1.00-4.80); LYMPHOCYTES PERCENT AUTO 24.1 % (24.0-44.0); MEAN CORPUSCULAR HEMOGLOBIN 30.5 pg (28.0-32.0); MEAN CORPUSCULAR HGB CONC 32.9 g/dL (32.0-36.0); MEAN CORPUSCULAR VOLUME 92.8 fL (83.0-99.0); MEAN PLATELET VOLUME 8.9 fL (9.4-12.3); MONOCYTES ABSOLUTE AUTO 0.72 K/uL (0.00-0.80); MONOCYTES PERCENT AUTO 7.3 % (0.0-8.0); NEUTROPHILS ABSOLUTE AUTO 6.49 K/uL (1.80-7.70); NEUTROPHILS PERCENT AUTO 65.9 % (41.0-71.0); PLATELET COUNT,PLT 189 K/uL (150-400); RED BLOOD CELL COUNT 4.59 M/uL (4.10-5.30); WHITE BLOOD CELL COUNT,WBC 9.85 K/uL (3.9-11.3)
[2024-04-21] MEDS: Iopamidol 755 MG/ML 500 ML Multipack Bottle IVPUSH STA (12:03)
[2024-04-21 12:12] LABS: A/G RATIO 0.9 (0.9-1.6); ALANINE AMINOTRANSFERASE,ALT 30 IU/L (14-63); ALBUMIN 3.5 g/dL (3.4-5.0); ALKALINE PHOSPHATASE 110 U/L (46-116); ASPARTATE AMNIOTRANSFERASE,AST 39 IU/L (15-37); BILIRUBIN TOTAL 0.7 mg/dL (0.2-1.0); BLOOD UREA NITROGEN,BUN 6 mg/dL (7.0-18.0); CALCIUM 8.6 mg/dL (8.5-10.1); CARBON DIOXIDE,CO2 24.4 mmol/L (21.0-32.0); CHLORIDE,CL 105 mmol/L (98-107); CREATININE 0.7 mg/dL (0.6-1.0); ETHANOL BLOOD MEDICAL 48 mg/dL; GLUCOSE RANDOM 170 mg/dL (74-106); LIPASE 37 U/L (16-77); POTASSIUM,K 3.5 mmol/L (3.5-5.1); PROTEIN TOTAL,TP 7.5 g/dL (6.4-8.2); SODIUM,NA 141 mmol/L (136-145)
[2024-04-21 12:17] LABS: ESTIMATED GFR 98 mL/min (>60)
[2024-04-21] MEDS: Propofol 200 MG/20 ML SDV IVPUSH ONE ×2 (12:26→12:33)
[2024-04-21 12:27] LABS: APPEARANCE,URINE CLEAR; BILIRUBIN,URINE NEGATIVE (NEGATIVE); COLOR,URINE YELLOW; GLUCOSE,URINE NEGATIVE (NEGATIVE); KETONES,URINE NEGATIVE (NEGATIVE); LEUKOCYTE ESTERASE,URINE NEGATIVE (NEGATIVE); NITRITE,URINE NEGATIVE (NEGATIVE); OCCULT BLOOD,URINE TRACE-INTACT (NEGATIVE); PROTEIN,URINE NEGATIVE (NEGATIVE); UROBILINOGEN,URINE 0.2 EU/dL (<2.0)
[2024-04-21 12:33] LABS: AMPHETAMINES SCREEN, URINE NEGATIVE (CUTOFF=500); BARBITURATE SCREEN,URINE NEGATIVE (CUTOFF=200); BENZODIAZEPINES SCREEN,URINE NEGATIVE (CUTOFF=150); BUPRENORPHINE SCREEN,URINE NEGATIVE (CUTOFF=10); METHADONE SCREEN, URINE NEGATIVE (CUTOFF=200); METHAMPHETAMINES SCREEN, URINE NEGATIVE (CUTOFF=500); OXYCODONE SCREEN,URINE NEGATIVE (CUT0FF=100); PCP SCREEN,URINE NEGATIVE (CUTOFF=25); THC SCREEN,URINE 20 NG/ML NEGATIVE (CUTOFF=50)
[2024-04-21 12:38] LABS: BACTERIA,URINE NOT SEEN (NEGATIVE); EPITHELIAL CELLS,URINE FEW (NONE-FEW); RBC,URINE 0-1 (0-2/HPF); WBC,URINE NONE SEEN (0-5/HPF)
[2024-04-21] MEDS: Diphtheria,Pertussis(Acell),Tetanus Vaccine 0.5 ML Syringe IM ONE (12:40)
[2024-04-21] MEDS: Sodium Chloride 0.9% 1,000 ML IV ONE (12:43)
[2024-04-21] MEDS: fentaNYL/Normal Saline 250 ML ONE (12:43)
[2024-04-21 13:48] VITALS: PULSE 56
[2024-04-21 13:49] VITALS: BP 155/87
[2024-04-21] MEDS: Benzocaine 20% Topical Spray UD MUCMEM ONE (19:43)
== END 2024-04-21 14:16 ==
LOC: MW.ED 11:16
DX: S22.43XA Multiple fractures of ribs, bilateral, initial encounter for closed fracture (principal); S06.5X0A Traumatic subdural hemorrhage without loss of consciousness, initial encounter; S32.509A Unspecified fracture of unspecified pubis, initial encounter for closed fracture; Z91.030 Bee allergy status; I10 Essential (primary) hypertension; J44.9 Chronic obstructive pulmonary disease, unspecified; Z23 Encounter for immunization; E03.9 Hypothyroidism, unspecified; Z90.710 Acquired absence of both cervix and uterus; X58.XXXA Exposure to other specified factors, initial encounter
CPT/HCPCS: 36415; 43752; 51702; 70450; 71045; 71260; 72125; 74177; 80053; 80305; 80307; 81001; 81025; 82947; 83690; 85025; 85610; 86850; 86900; 86901; 90471; 90715; 93005; 96365; 96366; 96368; 99285; J2704; J7030; Q9967; 72128-26; 72131-26; 93010; 99291; J3490